=== PATIENT | male | born 1980 | race Caucasian/White ===

== ENCOUNTER 2017-01-14 20:16 | Inpatient (IN) | payer MEDICAID ==
--- NOTE | 2017-01-14 21:37 | EDM.PDOC ---
ED HPI GENERAL MEDICAL PROBLEM - General Chief Complaint: Drug or Alcohol Abuse Stated Complaint: ALCOHOL WITHDRAWAL Time Seen by Provider: 01/14/17 21:37 - History of Present Illness INITIAL COMMENTS - FREE TEXT/NARRATIVE: 36-year-old male presents emergency room for alcohol detox. Patient was sent here by luis e carbajal. The patient has had several attempts in the past that of work variable lengths of time. However the patient's been drinking heavily again he drinks 1-2 12 packs a day. The patient is a problems with alcohol withdrawals in the past patient denies any other past medical problems. Patient denies any recent trauma or illnesses he has not had any recent head injuries. He has not had any recent illnesses no fevers chills or other problems like that. Generalized Pain Score (Numeric/FACES): 10 - Related Data Allergies Allergy/AdvReac Type Severity Reaction Status Date / Time No Known Allergies Allergy Verified 01/14/17 20:32 Home Meds: Home Meds . [No Known Home Meds] 01/14/17 [History] Past Medical History Cardiovascular History: Reports: Hypertension Psychiatric History: Reports: Addiction - Past Surgical History Musculoskeletal Surgical History: Reports: ORIF, Other (See Below) Other Musculoskeletal Surgeries/Procedures:: tendon repair Social & Family History - Tobacco Use Smoking Status *Q: Current Every Day Smoker Years of Tobacco use: 24 Packs/Tins Daily: 3 - Caffeine Use Caffeine Use: Reports: None - Alcohol Use Date of Last Drink: 01/14/17 Time of Last Drink: 19:30 - Recreational Drug Use Recreational Drug Use: No ED ROS GENERAL - Review of Systems Review Of Systems: See Below Constitutional: Reports: No Symptoms HEENT: Reports: No Symptoms Respiratory: Reports: No Symptoms Cardiovascular: Reports: No Symptoms Endocrine: Reports: No Symptoms GI/Abdominal: Reports: No Symptoms, Nausea, Vomiting. Denies: Black Stool, Bloody Stool, Constipation, Diarrhea, Difficulty Swallowing, Hematemesis : Reports: No Symptoms ED EXAM, GENERAL - Physical Exam Exam: See Below Exam Limited By: No Limitations General Appearance: Alert, No Apparent Distress Eye Exam: Bilateral Eye: Normal Inspection, PERRL Ears: Normal External Exam, Normal Canal, Hearing Grossly Normal, Normal TMs Nose: Normal Inspection, Normal Mucosa, No Blood Throat/Mouth: Normal Inspection, Normal Lips, Normal Gums, Normal Oropharynx, Normal Voice, No Airway Compromise Head: Atraumatic, Normocephalic Neck: Normal Inspection, Supple, Non-Tender, Full Range of Motion Respiratory/Chest: No Respiratory Distress, Lungs Clear, Normal Breath Sounds Cardiovascular: Regular Rate, Rhythm, No Edema, No Murmur GI/Abdominal: Normal Bowel Sounds, Soft, Non-Tender Back Exam: Normal Inspection. No: CVA Tenderness (L), CVA Tenderness (R) Extremities: Normal Inspection, Normal Range of Motion, Non-Tender, No Pedal Edema Neurological: Alert, Oriented, Normal Cognition Psychiatric: Normal Affect, Normal Mood Course - Vital Signs Last Recorded V/S: Last Vital Signs Temp 36.4 C 01/14/17 20:29 Pulse 92 01/14/17 20:29 Resp 16 01/14/17 20:29 BP 141/98 H 01/14/17 20:29 Pulse Ox 97 01/14/17 20:29 - Orders/Labs/Meds Orders: Active Orders 24 hr Category Date Time Status Antiembolic Devices [RC] 10,22 Care 01/14/17 22:51 Active CIWAA Assessment [RC] Q1HR Care 01/14/17 22:50 Active Cardiac Monitoring [RC] CONTINUOUS Care 01/14/17 22:50 Active Height and Weight [RC] 04 Care 01/14/17 22:50 Active Intake and Output [RC] 04,16 Care 01/14/17 22:50 Active Notify Provider Consults [RC] ASDIRECTED Care 01/14/17 22:53 Active Notify Provider [RC] PRN Care 01/14/17 22:50 Active Oxygen Therapy [RC] PRN Care 01/14/17 22:50 Active RT Aerosol Therapy [RC] ASDIRECTED Care 01/14/17 22:52 Active Up With Assistance [RC] ASDIRECTED Care 01/14/17 22:50 Active Up ad Caitlyn [RC] ASDIRECTED Care 01/14/17 22:50 Active VTE/DVT Education [RC] PER UNIT ROUTINE Care 01/14/17 22:50 Active Vital Signs [RC] Q4HR Care 01/14/17 22:50 Active Consult to Case Management [CONS] Routine Cons 01/14/17 22:52 Active Consult to Physician [CONS] Routine Cons 01/14/17 22:52 Active Consult to Agricultural Research Technologist [CONS] Routine Cons 01/14/17 22:52 Active Consult to Spiritual Care [CONS] Routine Cons 01/14/17 22:52 Active OT Evaluation and Treatment [CONS] Routine Cons 01/14/17 22:52 Active PT Evaluation and Treatment [CONS] Routine Cons 01/14/17 22:52 Active Regular Diet [DIET] Diet 01/15/17 Breakfast Active Abdomen 2V AP Flat Upright [CR] Stat Exams 01/14/17 22:08 Taken BASIC METABOLIC PANEL,BMP [CHEM] AM Lab 01/15/17 05:11 Ordered BASIC METABOLIC PANEL,BMP [CHEM] AM Lab 01/16/17 05:11 Ordered BASIC METABOLIC PANEL,BMP [CHEM] AM Lab 01/17/17 05:11 Ordered CBC WITH AUTO DIFF [HEME] AM Lab 01/15/17 05:11 Ordered CBC WITH AUTO DIFF [HEME] AM Lab 01/16/17 05:11 Ordered CBC WITH AUTO DIFF [HEME] AM Lab 01/17/17 05:11 Ordered DRUG SCREEN, URINE [URCHEM] Stat Lab 01/14/17 22:52 Uncollected MAGNESIUM [CHEM] AM Lab 01/15/17 05:11 Ordered MAGNESIUM [CHEM] AM Lab 01/16/17 05:11 Ordered MAGNESIUM [CHEM] AM Lab 01/17/17 05:11 Ordered Acetaminophen [Tylenol] Med 01/14/17 22:50 Active 650 mg PO Q4H PRN Acetaminophen/HYDROcodone [Bunker 325-5 MG] Med 01/14/17 22:50 Active 1 tab PO Q4H PRN Albuterol/Ipratropium [DuoNeb 3.0-0.5 MG/3 ML] Med 01/14/17 22:50 Active 3 ml NEB Q4HRRT PRN Bisacodyl [Dulcolax] Med 01/14/17 22:50 Active 5 mg PO DAILY PRN Dextrose 5%-0.9% NaCl [Dextrose 5%-Normal Saline] 1,000 Med 01/14/17 23:00 Active ml IV ASDIRECTED Docusate Sodium [Colace] Med 01/14/17 22:50 Active 100 mg PO BID PRN Docusate Sodium/Sennosides [Senna Plus] Med 01/14/17 22:50 Active 1 tab PO BID PRN Famotidine [Pepcid] Med 01/15/17 09:00 Active 20 mg PO Q12H Folic Acid Med 01/15/17 09:00 Active 1 mg PO DAILY HYDROmorphone [Dilaudid] Med 01/14/17 22:50 Active 0.25 mg IVPUSH Q2H PRN Ibuprofen [Motrin] Med 01/14/17 22:50 Active 600 mg PO Q6H PRN LORazepam [Ativan] Med 01/14/17 22:56 Active 2 mg IVPUSH Q4H PRN LORazepam [Ativan] Med 01/14/17 22:56 Active See Protocol IVPUSH Q4H PRN Magnesium Rep Pharmacy to Dose [Pharmacy to Dose - Med 01/14/17 23:00 Pending Magnesium Replacement] 1 dose .XX ASDIRECTED Metoprolol Tartrate [Lopressor] Med 01/14/17 22:56 Active 5 mg IVPUSH Q4H PRN Multivitamins,Therapeutic [Thera] Med 01/15/17 09:00 Active 1 each PO DAILY Nicotine [Habitrol] Med 01/15/17 09:00 Active 21 mg TRDERM DAILY Ondansetron [Zofran] Med 01/14/17 22:50 Active 4 mg IV Q6H PRN Pantoprazole [ProTONIX IV] Med 01/15/17 22:52 Once 40 mg IV ONETIME ONE Polyethylene Glycol 3350 [MiraLAX] Med 01/14/17 22:50 Active 17 gm PO DAILY PRN Potassium Rep Pharmacy to Dose [Pharmacy to Dose - Med 01/14/17 23:00 Pending Potassium Replacement] 1 dose .XX ASDIRECTED Promethazine [Phenergan] 12.5 mg Med 01/14/17 22:50 Active Sodium Chloride 0.9% [Normal Saline] 50 ml IV Q6H Temazepam [Restoril] Med 01/14/17 22:50 Active 15 mg PO BEDTIME PRN Thiamine [Vitamin B-1] Med 01/15/17 09:00 Active 100 mg PO DAILY cloNIDine [Catapres] Med 01/14/17 22:52 Active 0.1 mg PO Q4H PRN hydrALAZINE [Apresoline] Med 01/14/17 22:56 Active 20 mg IVPUSH Q4H PRN Seizure Precautions [OM.PC] Routine Oth 01/14/17 22:52 Ordered Sequential Compression Device [OM.PC] Per Unit Routine Oth 01/14/17 22:50 Ordered Resuscitation Status Routine Resus Stat 01/14/17 22:50 Ordered Medication Orders Acetaminophen (Tylenol) 650 mg PO Q4H PRN PRN Reason: Pain (Mild 1-3)/fever Hydrocodone Bitart/Acetaminophen (Bunker 325-5 Mg) 1 tab PO Q4H PRN PRN Reason: Pain (moderate 4-6) Albuterol/Ipratropium (Duoneb 3.0-0.5 Mg/3 Ml) 3 ml NEB Q4HRRT PRN PRN Reason: Shortness Of Breath/wheezing Bisacodyl (Dulcolax) 5 mg PO DAILY PRN PRN Reason: Constipation Chlordiazepoxide HCl (Librium) 25 mg PO TID CLYDE Clonidine HCl (Catapres) 0.1 mg PO Q4H PRN PRN Reason: Agitation Diphenhydramine HCl (Benadryl) 50 mg IVPUSH ONETIME ONE Stop: 01/14/17 23:52 Docusate Sodium (Colace) 100 mg PO BID PRN PRN Reason: Constipation Famotidine (Pepcid) 20 mg PO Q12H CLY[facility] Folic Acid (Folic Acid) 1 mg PO DAILY CLYDE Stop: 01/17/17 09:01 Folic Acid (Folic Acid) 1 mg PO ONETIME ONE Stop: 01/14/17 23:53 Hydralazine HCl (Apresoline) 20 mg IVPUSH Q4H PRN PRN Reason: Hypertension Hydromorphone HCl (Dilaudid) 0.25 mg IVPUSH Q2H PRN PRN Reason: Pain (severe 7-10) Dextrose/Sodium Chloride (Dextrose 5%-Normal Saline) 1,000 mls @ 125 mls/hr IV ASDIRECTED CLYDE Promethazine HCl 12.5 mg/ (Sodium Chloride) 50.5 mls @ 100 mls/hr IV Q6H PRN PRN Reason: Nausea/Vomiting Ibuprofen (Motrin) 600 mg PO Q6H PRN PRN Reason: Pain (moderate 4-6) Lorazepam (Ativan) 2 mg IVPUSH Q4H PRN PRN Reason: Seizures Lorazepam (Ativan) 0 mg IVPUSH Q4H PRN; Protocol PRN Reason: Withdrawal Symptoms Magnesium Sulfate (Pharmacy To Dose - Magnesium Replacement) 1 dose .XX ASDIRECTED [facility] Metoprolol Tartrate (Lopressor) 5 mg IVPUSH Q4H PRN PRN Reason: Tachycardia Miscellaneous Information (Remove Patch) 1 ea TRDERM DAILY [facility] Multivitamins (Thera) 1 each PO DAILY [facility] Nicotine (Habitrol) 21 mg TRDERM DAILY [facility] Ondansetron HCl (Zofran) 4 mg IV Q6H PRN PRN Reason: Nausea/Vomiting Pantoprazole Sodium (Protonix Iv) 40 mg IV ONETIME ONE Stop: 01/15/17 22:53 Polyethylene Glycol (Miralax) 17 gm PO DAILY PRN PRN Reason: Constipation Potassium Chloride (Pharmacy To Dose - Potassium Replacement) 1 dose .XX ASDIRECTED [facility] Potassium Chloride (Klor-Con M20) 20 meq PO Q3H [facility] Stop: 01/15/17 02:01 Quetiapine Fumarate (Seroquel) 50 mg PO ONETIME ONE Stop: 01/15/17 23:06 Quetiapine Fumarate (Seroquel) 25 mg PO BID [facility] Quetiapine Fumarate (Seroquel) 50 mg PO ONETIME ONE Stop: 01/14/17 23:51 Senna/Docusate Sodium (Senna Plus) 1 tab PO BID PRN PRN Reason: Constipation Temazepam (Restoril) 15 mg PO BEDTIME PRN PRN Reason: Sleep Thiamine HCl (Vitamin B-1) 100 mg PO DAILY [facility] Labs: Laboratory Tests 01/14/17 01/14/17 Range/Units 22:06 22:06 WBC 4.00 L (4.23-9.07) K/mm3 RBC 5.10 (4.63-6.08) M/mm3 Hgb 16.7 (13.7-17.5) gm/L Hct 45.6 (40.1-51.0) % MCV 89.4 (79.0-92.2) fl MCH 32.7 H (25.7-32.2) pg MCHC 36.6 H (32.2-35.5) g/dl RDW Std Deviation 43.2 (35.1-43.9) fL Plt Count 85 L (163-337) K/mm3 MPV 9.7 (9.4-12.3) fl Neutrophils % (Manual) 50 (40-60) % Band Neutrophils % 4 (0-10) % Lymphocytes % (Manual) 40 (20-40) % Atypical Lymphs % 0 % Monocytes % (Manual) 5 (2-10) % Eosinophils % (Manual) 1 (0.8-7.0) % Basophils % (Manual) 0 L (0.2-1.2) Platelet Estimate Decreased Anisocytosis 1+ slight Target Cells 1+ slight Tear Drop Cells 1+ slight RBC Morph Comment Not Reportable Sodium 135 L (136-145) mEq/L Potassium 3.2 L (3.5-5.1) mEq/L Chloride 96 L (98-107) mEq/L Carbon Dioxide 28 (21-32) mEq/L Anion Gap 14.2 (5-15) BUN 4 L (7-18) mg/dL Creatinine 0.9 (0.7-1.3) mg/dL Est Cr Clr Drug Dosing 106.09 mL/min Estimated GFR (MDRD) > 60 (>60) mL/min BUN/Creatinine Ratio 4.4 L (14-18) Glucose 113 H (74-106) mg/dL Calcium 8.7 (8.5-10.1) mg/dL Total Bilirubin 0.5 (0.2-1.0) mg/dL Direct Bilirubin 0.20 (0.0-0.2) mg/dl Indirect Bilirubin 0.30 AST 200 H (15-37) U/L ALT 151 H (16-63) U/L Alkaline Phosphatase 102 (46-116) U/L Total Protein 8.6 H (6.4-8.2) g/dl Albumin 4.2 (3.4-5.0) g/dl Globulin 4.4 gm/dL Albumin/Globulin Ratio 1.0 (1-2) Lipase 357 (73-393) U/L Ethyl Alcohol 0.42 (0.00) gm% Meds: Medications Generic Name Dose Route Start Last Admin Trade Name Freq PRN Reason Stop Dose Admin Acetaminophen 650 mg 01/14/17 22:50 Tylenol PO Q4H PRN Pain (Mild 1-3)/fever Hydrocodone Bitart/Acetaminophen 1 tab 01/14/17 22:50 Bunker 325-5 Mg PO Q4H PRN Pain (moderate 4-6) Albuterol/Ipratropium 3 ml 01/14/17 22:50 Duoneb 3.0-0.5 Mg/3 Ml NEB Q4HRRT PRN Shortness Of Breath/wheezing Bisacodyl 5 mg 01/14/17 22:50 Dulcolax PO DAILY PRN Constipation Chlordiazepoxide HCl 25 mg 01/15/17 09:00 Librium PO TID [facility] Clonidine HCl 0.1 mg 01/14/17 22:52 Catapres PO Q4H PRN Agitation Diphenhydramine HCl 50 mg 01/14/17 23:51 Benadryl IVPUSH 01/14/17 23:52 ONETIME ONE Docusate Sodium 100 mg 01/14/17 22:50 Colace PO BID PRN Constipation Famotidine 20 mg 01/15/17 09:00 Pepcid PO Q12H [facility] Folic Acid 1 mg 01/15/17 09:00 Folic Acid PO 01/17/17 09:01 DAILY [facility] Folic Acid 1 mg 01/14/17 23:52 Folic Acid PO 01/14/17 23:53 ONETIME ONE Hydralazine HCl 20 mg 01/14/17 22:56 Apresoline IVPUSH Q4H PRN Hypertension Hydromorphone HCl 0.25 mg 01/14/17 22:50 Dilaudid IVPUSH Q2H PRN Pain (severe 7-10) Dextrose/Sodium Chloride 1,000 mls @ 125 mls/hr 01/14/17 23:00 Dextrose 5%-Normal Saline IV ASDIRECTED [facility] Promethazine HCl 12.5 mg/ 50.5 mls @ 100 mls/hr 01/14/17 22:50 Sodium Chloride IV Q6H PRN Nausea/Vomiting Ibuprofen 600 mg 01/14/17 22:50 Motrin PO Q6H PRN Pain (moderate 4-6) Lorazepam 2 mg 01/14/17 22:56 Ativan IVPUSH Q4H PRN Seizures Lorazepam 0 mg 01/14/17 22:56 Ativan IVPUSH Q4H PRN Withdrawal Symptoms Protocol Magnesium Sulfate 1 dose 01/14/17 23:00 Pharmacy To Dose - Magnesium Replacement .XX ASDIRECTED [facility] Metoprolol Tartrate 5 mg 01/14/17 22:56 Lopressor IVPUSH Q4H PRN Tachycardia Miscellaneous Information 1 ea 01/15/17 09:00 Remove Patch TRDERM DAILY [facility] Multivitamins 1 each 01/15/17 09:00 Thera PO DAILY [facility] Nicotine 21 mg 01/15/17 09:00 Habitrol TRDERM DAILY [facility] Ondansetron HCl 4 mg 01/14/17 22:50 Zofran IV Q6H PRN Nausea/Vomiting Pantoprazole Sodium 40 mg 01/15/17 22:52 Protonix Iv IV 01/15/17 22:53 ONETIME ONE Polyethylene Glycol 17 gm 01/14/17 22:50 Miralax PO DAILY PRN Constipation Potassium Chloride 1 dose 01/14/17 23:00 Pharmacy To Dose - Potassium Replacement .XX ASDIRECTED [facility] Potassium Chloride 20 meq 01/14/17 23:00 Klor-Con M20 PO 01/15/17 02:01 Q3H [facility]YDE Quetiapine Fumarate 50 mg 01/15/17 23:05 Seroquel PO 01/15/17 23:06 ONETIME ONE Quetiapine Fumarate 25 mg 01/15/17 09:00 Seroquel PO BID CLYDE Quetiapine Fumarate 50 mg 01/14/17 23:50 Seroquel PO 01/14/17 23:51 ONETIME ONE Senna/Docusate Sodium 1 tab 01/14/17 22:50 Senna Plus PO BID PRN Constipation Temazepam 15 mg 01/14/17 22:50 Restoril PO BEDTIME PRN Sleep Thiamine HCl 100 mg 01/15/17 09:00 Vitamin B-1 PO DAILY [facility] Discontinued Medications Generic Name Dose Route Start Last Admin Trade Name Freq PRN Reason Stop Dose Admin Chlordiazepoxide HCl 25 mg 01/14/17 22:02 01/14/17 22:10 Librium PO 01/14/17 22:03 25 mg ONETIME ONE Administration Chlordiazepoxide HCl 75 mg 01/14/17 23:06 Librium PO 01/14/17 23:07 ONETIME ONE Thiamine HCl 200 mg/ Sodium 52 mls @ 100 mls/hr 01/14/17 22:52 Chloride IV 01/14/17 23:22 ONETIME ONE - Re-Assessments/Exams Free Text/Narrative Re-Assessment/Exam: 01/14/17 23:58 She'll be placed in for alcohol detox. Case discussed with Dr. Celestin our hospitalist Departure - Departure Time of Disposition: 23:59 Disposition: Admitted As Inpatient 66 Clinical Impression: Alcohol withdrawal syndrome - Discharge Information - My Orders Last 24 Hours: My Active Orders 01/14/17 22:08 Abdomen 2V AP Flat Upright [CR] Stat - Assessment/Plan Last 24 Hours: My Active Orders 01/14/17 22:08 Abdomen 2V AP Flat Upright [CR] Stat
[2017-01-14] MEDS ORDERED: chlordiazePOXIDE 25 MG Cap PO ONE ×2 (22:02→23:06)
[2017-01-14] MEDS ORDERED: Bisacodyl 5 MG Tab PO PRN (22:50)
[2017-01-14] MEDS ORDERED: Ibuprofen 600 MG Tab PO PRN (22:50)
[2017-01-14] MEDS ORDERED: Ondansetron 4 MG/2 ML SDV IV PRN (22:50)
[2017-01-14] MEDS ORDERED: Polyethylene Glycol 3350 Powder 17 GM Packet PO PRN (22:50)
[2017-01-14] MEDS ORDERED: HYDROmorphone 0.5 MG/0.5 ML Syringe IVPUSH PRN (22:50)
[2017-01-14] MEDS ORDERED: Promethazine 12.5 MG in Sodium Chloride 0.9% 50 ML IV PRN (22:50)
[2017-01-14] MEDS ORDERED: Docusate Sodium 100 MG Cap PO PRN (22:50)
[2017-01-14] MEDS ORDERED: Acetaminophen/HYDROcodone 325-5 MG Tab PO PRN (22:50)
[2017-01-14] MEDS ORDERED: Acetaminophen 325 MG Tab PO PRN (22:50)
[2017-01-14] MEDS ORDERED: Albuterol/Ipratropium 3.0-0.5 MG/3 ML Neb Soln NEB PRN (22:50)
[2017-01-14] MEDS ORDERED: hydrALAZINE 20 MG/ML SDV IVPUSH PRN (22:56)
[2017-01-14] MEDS ORDERED: Metoprolol Tartrate 5 MG/5 ML SDV IVPUSH PRN (22:56)
--- NOTE | 2017-01-14 23:03 | PCM.HP ---
H&P History of Present Illness - General Date of Service: 01/14/17 Admit Problem/Dx: Alcohol Withdrawal Source of Information: Patient, Family, Provider, RN Notes Reviewed History Limitations: Reports: Altered Mental Status, Intoxication - History of Present Illness Initial Comments - Free Text/Narative: This is 36 year old white male who looks older than his stated age who comes to the emergency department for alcohol detoxification. He carries a history of chronic alcohol abuse. He has been drinking alcohol since the age of 12. He drinks over 24 packs a day and sometimes mixed it with a pint of whiskey on and off. His last drink was 3 hours ago. Patient has reached a point where and he can no longer function without alcohol in his system. He has been to rehabilitation over a year ago in [facility]. Unfortunately, last May he slipped up (was seen in [place]) but got back to rehabilitation. 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 He denies any illicit drug use. However he smokes 2-3 packs a day. His initial labs in emergency departments are still pending. Patient is being admitted for alcohol detoxification. He plans to go to [facility] for outpatient treatment. Generalized Pain Score (Numeric/FACES): 10 - Related Data Allergies/Adverse Reactions: Allergies Allergy/AdvReac Type Severity Reaction Status Date / Time No Known Allergies Allergy Verified 01/14/17 20:32 Home Medications: Home Meds . [No Known Home Meds] 01/14/17 [History] Past Medical History Cardiovascular History: Reports: Hypertension Psychiatric History: Reports: Addiction - Past Surgical History Musculoskeletal Surgical History: Reports: ORIF, Other (See Below) Other Musculoskeletal Surgeries/Procedures:: tendon repair Social & Family History - Tobacco Use Smoking Status *Q: Current Every Day Smoker Years of Tobacco use: 24 Packs/Tins Daily: 3 - Caffeine Use Caffeine Use: Reports: None - Alcohol Use Date of Last Drink: 01/14/17 Time of Last Drink: 19:30 - Recreational Drug Use Recreational Drug Use: No H&P Review of Systems - Review of Systems: Review Of Systems: See Below General: Reports: Malaise, Decreased Appetite HEENT: Reports: No Symptoms Pulmonary: Denies: Shortness of Breath Cardiovascular: Denies: Chest Pain Gastrointestinal: Denies: Abdominal Pain, Nausea, Vomiting Genitourinary: Reports: No Symptoms Musculoskeletal: Reports: No Symptoms Skin: Reports: No Symptoms Psychiatric: Denies: Depression, Anxiety, Agitation, Cravings, Hallucinations, Suicidal Ideation Neurological: Reports: Confusion, Tremors, Difficulty Walking, Gait Disturbance. Denies: Seizure, Weakness Hematologic/Lymphatic: Reports: No Symptoms Immunologic: Reports: No Symptoms Exam - Exam Exam: See Below - Vital Signs Vital Signs: Last Vital Signs Temp 36.4 C 01/14/17 20:29 Pulse 92 01/14/17 20:29 Resp 16 01/14/17 20:29 BP 141/98 H 01/14/17 20:29 Pulse Ox 97 01/14/17 20:29 Weight: 77.111 kg - Exam General: Lethargic, Other (breath smells alcohol) HEENT: Conjunctiva Clear, EACs Clear, Mucosa Moist & [place], Nares Patent, Posterior Pharynx Clear, Pupils Equal, Pupils Reactive, Other (lateral nystagmus ) Neck: Supple, Trachea Midline Lungs: Clear to Auscultation, Normal Respiratory Effort Cardiovascular: Regular Rate, Regular Rhythm Abdomen: Normal Bowel Sounds, Soft. No: Organomegaly, Tenderness (Male) Exam: Deferred Rectal (Males) Exam: Deferred Back Exam: Normal Inspection, Decreased Range of Motion Extremities: Normal Inspection, Normal Pulses Peripheral Pulses: 2+: Posterior Tibial (L), Posterior Tibial (R), Dorsalis Pedis (L), Dorsalis Pedis (R) Skin: Warm, Dry, Intact Neuro Extensive - Mental Status: Normal Mood/Affect, Slow Response to Commands. No: Oriented x3, Normal Cognition, Memory Intact Neuro Extensive - Motor, Sensory, Reflexes: CN II-XII Intact (limited due to intoxication), Abnormal Gait Psychiatric: Withdrawal Symptoms - Patient Data Lab Results Last 24 hrs: Laboratory Results - last 24 hr 01/14/17 01/14/17 Range/Units 22:06 22:06 WBC 4.00 L (4.23-9.07) K/mm3 RBC 5.10 (4.63-6.08) M/mm3 Hgb 16.7 (13.7-17.5) gm/L Hct 45.6 (40.1-51.0) % MCV 89.4 (79.0-92.2) fl MCH 32.7 H (25.7-32.2) pg MCHC 36.6 H (32.2-35.5) g/dl RDW Std Deviation 43.2 (35.1-43.9) fL Plt Count 85 L (163-337) K/mm3 MPV 9.7 (9.4-12.3) fl Sodium 135 L (136-145) mEq/L Potassium 3.2 L (3.5-5.1) mEq/L Chloride 96 L (98-107) mEq/L Carbon Dioxide 28 (21-32) mEq/L Anion Gap 14.2 (5-15) BUN 4 L (7-18) mg/dL Creatinine 0.9 (0.7-1.3) mg/dL Est Cr Clr Drug Dosing 106.09 mL/min Estimated GFR (MDRD) > 60 (>60) mL/min BUN/Creatinine Ratio 4.4 L (14-18) Glucose 113 H (74-106) mg/dL Calcium 8.7 (8.5-10.1) mg/dL Total Bilirubin 0.5 (0.2-1.0) mg/dL Direct Bilirubin 0.20 (0.0-0.2) mg/dl Indirect Bilirubin 0.30 AST 200 H (15-37) U/L ALT 151 H (16-63) U/L Alkaline Phosphatase 102 (46-116) U/L Total Protein 8.6 H (6.4-8.2) g/dl Albumin 4.2 (3.4-5.0) g/dl Globulin 4.4 gm/dL Albumin/Globulin Ratio 1.0 (1-2) Lipase 357 (73-393) U/L Ethyl Alcohol 0.42 (0.00) gm% Result Diagrams: 01/15/17 07:02 01/14/17 22:06 *Q Meaningful Use (ADM) - VTE *Q VTE Criteria *Q: - Stroke *Q Stroke Criteria *Q: - AMI *Q AMI Criteria *Q: Problem List Initiated/Reviewed/Updated: Yes Orders Last 24hrs: Active Orders 24 hr Category Date Time Status Antiembolic Devices [RC] PER UNIT ROUTINE Care 01/14/17 22:51 Ordered CIWAA Assessment [RC] Q15M Care 01/14/17 22:50 Ordered CIWAA Assessment [RC] Q1H Care 01/14/17 22:50 Ordered CIWAA Assessment [RC] Q30M Care 01/14/17 22:50 Ordered CIWAA Assessment [RC] Q4H Care 01/14/17 22:50 Ordered Cardiac Monitoring [RC] CONTINUOUS Care 01/14/17 22:50 Ordered Height and Weight [RC] DAILY Care 01/14/17 22:50 Ordered Intake and Output [RC] QSHIFT Care 01/14/17 22:50 Ordered Notify Provider Consults [RC] ASDIRECTED Care 01/14/17 22:53 Ordered Notify Provider [RC] PRN Care 01/14/17 22:50 Ordered Oxygen Therapy [RC] PRN Care 01/14/17 22:50 Ordered RT Aerosol Therapy [RC] ASDIRECTED Care 01/14/17 22:52 Ordered Up With Assistance [RC] ASDIRECTED Care 01/14/17 22:50 Ordered Up ad Caitlyn [RC] ASDIRECTED Care 01/14/17 22:50 Ordered VTE/DVT Education [RC] PER UNIT ROUTINE Care 01/14/17 22:50 Ordered Vital Signs [RC] Q4H Care 01/14/17 22:50 Ordered Consult to Case Management [CONS] Routine Cons 01/14/17 22:52 Ordered Consult to Physician [CONS] Routine Cons 01/14/17 22:52 Ordered Consult to Loan Processing Supervisor [CONS] Routine Cons 01/14/17 22:52 Ordered Consult to Spiritual Care [CONS] Routine Cons 01/14/17 22:52 Ordered OT Evaluation and Treatment [CONS] Routine Cons 01/14/17 22:52 Ordered PT Evaluation and Treatment [CONS] Routine Cons 01/14/17 22:52 Ordered Regular Diet [DIET] Diet 01/15/17 Breakfast Ordered Abdomen 2V AP Flat Upright [CR] Stat Exams 01/14/17 22:08 Ordered BASIC METABOLIC PANEL,BMP [CHEM] AM Lab 01/15/17 05:11 Ordered BASIC METABOLIC PANEL,BMP [CHEM] AM Lab 01/16/17 05:11 Ordered BASIC METABOLIC PANEL,BMP [CHEM] AM Lab 01/17/17 05:11 Ordered CBC WITH AUTO DIFF [HEME] AM Lab 01/15/17 05:11 Ordered CBC WITH AUTO DIFF [HEME] AM Lab 01/16/17 05:11 Ordered CBC WITH AUTO DIFF [HEME] AM Lab 01/17/17 05:11 Ordered CBC WITH MANUAL DIFF [HEME] Stat Lab 01/14/17 22:06 Results DRUG SCREEN, URINE [URCHEM] Stat Lab 01/14/17 22:52 Uncollected MAGNESIUM [CHEM] AM Lab 01/15/17 05:11 Ordered MAGNESIUM [CHEM] AM Lab 01/16/17 05:11 Ordered MAGNESIUM [CHEM] AM Lab 01/17/17 05:11 Ordered Acetaminophen [Tylenol] Med 01/14/17 22:50 Ordered 650 mg PO Q4H PRN Acetaminophen/HYDROcodone [[place] 325-5 MG] Med 01/14/17 22:50 Ordered 1 tab PO Q4H PRN Albuterol/Ipratropium [DuoNeb 3.0-0.5 MG/3 ML] Med 01/14/17 22:50 Ordered 3 ml NEB Q4H PRN Bisacodyl [Dulcolax] Med 01/14/17 22:50 Ordered 5 mg PO DAILY PRN Dextrose 5%-Normal Saline @ 125 MLS/HR(1000ml) Med 01/14/17 23:00 Ordered Dextrose 5%-0.9% NaCl [Dextrose 5%-Normal Saline] 1,000 ml IV ASDIRECTED Docusate Sodium [Colace] Med 01/14/17 22:50 Ordered 100 mg PO BID PRN Docusate Sodium/Sennosides [Senna Plus] Med 01/14/17 22:50 Ordered 1 tab PO BID PRN Famotidine [Pepcid] Med 01/15/17 09:00 Ordered 20 mg PO Q12H Folic Acid Med 01/15/17 09:00 Ordered 1 mg PO DAILY HYDROmorphone [Dilaudid] Med 01/14/17 22:50 Ordered 0.25 mg IVPUSH Q2H PRN Ibuprofen [Motrin] Med 01/14/17 22:50 Ordered 600 mg PO Q6H PRN LORazepam [Ativan] Med 01/14/17 22:56 Ordered 2 mg IVPUSH Q4H PRN LORazepam [Ativan] Med 01/14/17 22:56 Ordered See Protocol IVPUSH Q4H PRN Magnesium Rep Pharmacy to Dose [Pharmacy to Dose - Med 01/14/17 23:00 Ordered Magnesium Replacement] 1 dose .XX ASDIRECTED Metoprolol Tartrate [Lopressor] Med 01/14/17 22:56 Ordered 5 mg IVPUSH Q4H PRN Multivitamins,Therapeutic [Thera] Med 01/15/17 09:00 Ordered 1 each PO DAILY Seizure Precautions [OM.PC] Routine Oth 01/14/17 22:52 Ordered Sequential Compression Device [OM.PC] Per Unit Routine Oth 01/14/17 22:50 Ordered Resuscitation Status Routine Resus Stat 01/14/17 22:50 Ordered Assessment/Plan Comment:: Assessment: ETOH Detoxification with Withdrawal Symptoms - CIWA protocol: CIWA score considerably elevated - Ativan/Librium/Clonidine/Seroquel - Hydralzine and IVP BB for HR/BP control - Ativan for Abortive Seizure and Withdrawal Symptoms - Restoril for Insomnia Tobacco Dependence - Smokes 2-3 packs a day - Nicotine patch - Counseled on Smoking Cessation Chronic ETOH 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
[2017-01-14] MEDS ORDERED: QUEtiapine 25 MG Tab PO ONE (23:50)
[2017-01-14] MEDS ORDERED: diphenhydrAMINE 50 MG/ML SDV IVPUSH ONE (23:51)
[2017-01-14] MEDS ORDERED: Folic Acid 1 MG Tab PO ONE (23:52)
[2017-01-15] MEDS: Potassium Chloride 20 MEQ Tab.ER PO SCH ×6 (00:32→17:53)
[2017-01-15] MEDS: Dextrose 5%-0.9% NaCl 1,000 ML IV SCH ×3 (00:38→18:16)
[2017-01-15] MEDS: LORazepam 2 MG/ML MDV IVPUSH PRN ×9 (00:40→22:15)
--- NOTE | 2017-01-15 07:01 | CR ---
Abdomen: Supine and upright views of the abdomen were obtained. Comparison: No previous study. Bowel gas pattern appears normal. No abnormal calcifications or soft tissue abnormality is seen. No free air is identified. Minimal scoliosis noted within the spine most likely positional. Impression: 1. No abnormality is appreciated on two-view abdominal x-ray. Diagnostic code #1
[2017-01-15] MEDS: Folic Acid 1 MG Tab PO SCH ×2 (10:29→10:45)
[2017-01-15] MEDS: chlordiazePOXIDE 25 MG Cap PO SCH ×4 (10:30→20:05)
[2017-01-15] MEDS: QUEtiapine 25 MG Tab PO SCH ×3 (10:30→20:05)
[2017-01-15] MEDS: Thiamine 100 MG Tab PO SCH ×2 (10:30→10:45)
[2017-01-15] MEDS: Multivitamins,Therapeutic Tab PO SCH ×2 (10:30→10:48)
[2017-01-15] MEDS: Famotidine 20 MG Tab PO SCH ×3 (10:30→20:05)
--- NOTE | 2017-01-15 11:41 | PCM.PN ---
- General Info Date of Service: 01/15/17 Functional Status: Reports: pain controlled, tolerating diet - Review of Systems General: Reports: No Symptoms HEENT: Reports: no symptoms Pulmonary: Reports: no symptoms Cardiovascular: Reports: No Symptoms Gastrointestinal: Reports: No symptoms Genitourinary: Reports: no symptoms Musculoskeletal: Reports: no symptoms Skin: Reports: no symptoms Neurological: Reports: No Symptoms Psychiatric: Reports: no symptoms - Patient Data Vitals - most recent: Last Vital Signs Temp 36.7 C 01/15/17 08:00 Pulse 121 H 01/15/17 03:19 Resp 13 01/15/17 08:00 BP 93/61 01/15/17 08:00 Pulse Ox 96 01/15/17 08:00 Weight - most recent: 77.111 kg I&O - last 24 hours: Intake & Output 01/14/17 01/15/17 01/15/17 22:59 06:59 14:59 Intake Total 391 Output Total 600 Balance -209 Lab Results last 24 hrs: Laboratory Results - last 24 hr 01/15/17 01/15/17 Range/Units 07:02 07:02 WBC 3.10 L (4.23-9.07) K/mm3 RBC 4.85 (4.63-6.08) M/mm3 Hgb 15.6 (13.7-17.5) gm/L Hct 44.1 (40.1-51.0) % MCV 90.9 (79.0-92.2) fl MCH 32.2 (25.7-32.2) pg MCHC 35.4 (32.2-35.5) g/dl RDW Std Deviation 44.8 H (35.1-43.9) fL Plt Count 73 L (163-337) K/mm3 MPV 9.7 (9.4-12.3) fl Neut % (Auto) 36.1 (34.0-67.9) % Lymph % (Auto) 46.5 (21.8-53.1) % [place] % (Auto) 11.3 (5.3-12.2) % Eos % (Auto) 5.5 (0.8-7.0) Baso % (Auto) 0.6 (0.1-1.2) % Neut # (Auto) 1.12 L (1.78-5.38) K/mm3 Lymph # (Auto) 1.44 (1.32-3.57) K/mm3 [place] # (Auto) 0.35 (0.30-0.82) K/mm3 Eos # (Auto) 0.17 (0.04-0.54) K/mm3 Baso # (Auto) 0.02 (0.01-0.08) K/mm3 Manual Slide Review Abnormal smear Sodium 140 (136-145) mEq/L Potassium 3.1 L (3.5-5.1) mEq/L Chloride 103 (98-107) mEq/L Carbon Dioxide 28 (21-32) mEq/L Anion Gap 12.1 (5-15) BUN 4 L (7-18) mg/dL Creatinine 0.8 (0.7-1.3) mg/dL Est Cr Clr Drug Dosing 119.35 mL/min Estimated GFR (MDRD) > 60 (>60) mL/min BUN/Creatinine Ratio 5.0 L (14-18) Glucose 122 H (74-106) mg/dL Calcium 8.2 L (8.5-10.1) mg/dL Magnesium 2.1 (1.8-2.4) mg/dl Med Orders - Current: Current Medications Acetaminophen (Tylenol) 650 mg PO Q4H PRN PRN Reason: Pain (Mild 1-3)/fever Hydrocodone Bitart/Acetaminophen ([place] 325-5 Mg) 1 tab PO Q4H PRN PRN Reason: Pain (moderate 4-6) Albuterol/Ipratropium (Duoneb 3.0-0.5 Mg/3 Ml) 3 ml NEB Q4HRRT PRN PRN Reason: Shortness Of Breath/wheezing Bisacodyl (Dulcolax) 5 mg PO DAILY PRN PRN Reason: Constipation Chlordiazepoxide HCl (Librium) 25 mg PO TID [facility] Last Admin: 01/15/17 10:45 Dose: 25 mg Clonidine HCl (Catapres) 0.1 mg PO Q4H PRN PRN Reason: Agitation Docusate Sodium (Colace) 100 mg PO BID PRN PRN Reason: Constipation Famotidine (Pepcid) 20 mg PO Q12H [facility] Last Admin: 01/15/17 10:46 Dose: 20 mg Folic Acid (Folic Acid) 1 mg PO DAILY [facility] Stop: 01/17/17 09:01 Last Admin: 01/15/17 10:45 Dose: 1 mg Hydralazine HCl (Apresoline) 20 mg IVPUSH Q4H PRN PRN Reason: Hypertension Last Admin: 01/15/17 02:32 Dose: 20 mg Hydromorphone HCl (Dilaudid) 0.25 mg IVPUSH Q2H PRN PRN Reason: Pain (severe 7-10) Dextrose/Sodium Chloride (Dextrose 5%-Normal Saline) 1,000 mls @ 125 mls/hr IV ASDIRECTED [facility] Last Admin: 01/15/17 10:14 Dose: 125 mls/hr Promethazine HCl 12.5 mg/ (Sodium Chloride) 50.5 mls @ 100 mls/hr IV Q6H PRN PRN Reason: Nausea/Vomiting Ibuprofen (Motrin) 600 mg PO Q6H PRN PRN Reason: Pain (moderate 4-6) Lorazepam (Ativan) 2 mg IVPUSH Q4H PRN PRN Reason: Seizures Last Admin: 01/15/17 00:40 Dose: 2 mg Lorazepam (Ativan) 0 mg IVPUSH Q4H PRN; Protocol PRN Reason: Withdrawal Symptoms Last Admin: 01/15/17 03:41 Dose: 2 mg Metoprolol Tartrate (Lopressor) 5 mg IVPUSH Q4H PRN PRN Reason: Tachycardia Last Admin: 01/15/17 03:19 Dose: 5 mg Miscellaneous Information (Remove Patch) 1 ea TRDERM DAILY [facility] Last Admin: 01/15/17 10:30 Dose: Not Given Multivitamins (Thera) 1 each PO DAILY [facility] Last Admin: 01/15/17 10:48 Dose: 1 each Nicotine (Habitrol) 21 mg TRDERM DAILY [facility] Ondansetron HCl (Zofran) 4 mg IV Q6H PRN PRN Reason: Nausea/Vomiting Pantoprazole Sodium (Protonix Iv) 40 mg IV ONETIME ONE Stop: 01/15/17 22:53 Polyethylene Glycol (Miralax) 17 gm PO DAILY PRN PRN Reason: Constipation Potassium Chloride (Klor-Con M20) 40 meq PO Q4H [facility] Stop: 01/15/17 17:01 Last Admin: 01/15/17 10:29 Dose: Not Given Quetiapine Fumarate (Seroquel) 25 mg PO BID [facility] Last Admin: 01/15/17 10:45 Dose: 25 mg Senna/Docusate Sodium (Senna Plus) 1 tab PO BID PRN PRN Reason: Constipation Temazepam (Restoril) 15 mg PO BEDTIME PRN PRN Reason: Sleep Thiamine HCl (Vitamin B-1) 100 mg PO DAILY [facility] Last Admin: 01/15/17 10:45 Dose: 100 mg Discontinued Medications Chlordiazepoxide HCl (Librium) 25 mg PO ONETIME ONE Stop: 01/14/17 22:03 Last Admin: 01/14/17 22:10 Dose: 25 mg Chlordiazepoxide HCl (Librium) 75 mg PO ONETIME ONE Stop: 01/14/17 23:07 Last Admin: 01/15/17 00:33 Dose: 75 mg Diphenhydramine HCl (Benadryl) 50 mg IVPUSH ONETIME ONE Stop: 01/14/17 23:52 Last Admin: 01/15/17 00:33 Dose: 50 mg Folic Acid (Folic Acid) 1 mg PO ONETIME ONE Stop: 01/14/17 23:53 Last Admin: 01/15/17 00:33 Dose: 1 mg Thiamine HCl 200 mg/ Sodium (Chloride) 52 mls @ 100 mls/hr IV ONETIME ONE Stop: 01/14/17 23:22 Last Admin: 01/15/17 00:39 Dose: 100 mls/hr Magnesium Sulfate (Pharmacy To Dose - Magnesium Replacement) 1 dose .XX ASDIRECTED [facility] Potassium Chloride (Pharmacy To Dose - Potassium Replacement) 1 dose .XX ASDIRECTED [facility] Potassium Chloride (Klor-Con M20) 20 meq PO Q3H [facility] Stop: 01/15/17 02:01 Last Admin: 01/15/17 05:15 Dose: Not Given Quetiapine Fumarate (Seroquel) 50 mg PO ONETIME ONE Stop: 01/15/17 23:06 Quetiapine Fumarate (Seroquel) 50 mg PO ONETIME ONE Stop: 01/14/17 23:51 Last Admin: 01/15/17 00:33 Dose: 50 mg - Exam Quality Assessment: supplemental oxygen, DVT prophylaxis General: alert, oriented, no acute distress HEENT: Pupils equal, Pupils reactive, EOMI, Mucous membr. moist/pink Neck: supple, trachea midline Lungs: Clear to auscultation Cardiovascular: Regular Rate, Regular Rhythm Abdomen: bowel sounds present, soft, no tenderness, no distension (Male) Exam: Deferred Back Exam: Normal Inspection Extremities: no edema, normal pulses Skin: warm Neurological: no new focal deficit Psy/Mental Status: alert, anxious - Problem List Review Problem List Initiated/Reviewed/Updated: Yes - Plan Plan:: Assessment: ETOH Detoxification with Withdrawal Symptoms - CIWA protocol: CIWA score considerably elevated - Ativan/Librium/Clonidine/Seroquel - Hydralzine and IVP BB for HR/BP control - Ativan for Abortive Seizure and Withdrawal Symptoms - Restoril for Insomnia Tobacco Dependence - Smokes 2-3 packs a day - Nicotine patch - Counseled on Smoking Cessation 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
[2017-01-15] MEDS: Nicotine 21 MG/24 Hr Patch TRDERM SCH (11:44)
[2017-01-15] MEDS: Pantoprazole 40 MG Vial IV ONE (22:15)
[2017-01-15] MEDS ORDERED: QUEtiapine 25 MG Tab PO ONE (23:05)
[2017-01-16] MEDS: Temazepam 15 MG Cap PO PRN ×2 (00:08→23:39)
[2017-01-16] MEDS: LORazepam 2 MG/ML MDV IVPUSH PRN ×5 (00:08→23:38)
[2017-01-16] MEDS: Pantoprazole 40 MG Vial IV ONE (07:22)
[2017-01-16] MEDS: Multivitamins,Therapeutic Tab PO SCH (08:01)
[2017-01-16] MEDS: chlordiazePOXIDE 25 MG Cap PO SCH ×4 (08:01→20:55)
[2017-01-16] MEDS: Famotidine 20 MG Tab PO SCH ×3 (08:01→20:55)
[2017-01-16] MEDS: QUEtiapine 25 MG Tab PO SCH ×3 (08:01→20:55)
[2017-01-16] MEDS: Thiamine 100 MG Tab PO SCH (08:01)
[2017-01-16] MEDS: Nicotine 21 MG/24 Hr Patch TRDERM SCH (08:01)
[2017-01-16] MEDS: Folic Acid 1 MG Tab PO SCH (08:01)
[2017-01-16] MEDS ORDERED: Magnesium Sulfate/Water 2 GM in Premix Bag 1 BAG IV ONE (12:10)
--- NOTE | 2017-01-16 12:11 | PCM.PN ---
- General Info Date of Service: 01/16/17 Functional Status: Reports: tolerating diet, ambulating, urinating - Review of Systems General: Reports: No Symptoms HEENT: Reports: no symptoms Pulmonary: Reports: no symptoms Cardiovascular: Reports: No Symptoms Gastrointestinal: Reports: No symptoms Genitourinary: Reports: no symptoms Musculoskeletal: Reports: no symptoms Skin: Reports: no symptoms Neurological: Reports: No Symptoms Psychiatric: Reports: no symptoms - Patient Data Vitals - most recent: Last Vital Signs Temp 36.7 C 01/16/17 11:55 Pulse 99 01/15/17 20:00 Resp 16 01/16/17 11:55 BP 126/98 H 01/16/17 11:55 Pulse Ox 99 01/16/17 11:55 Weight - most recent: 71.54 kg I&O - last 24 hours: Intake & Output 01/15/17 01/16/17 01/16/17 22:59 06:59 14:59 Intake Total 2170 1725 Balance 2170 1725 Lab Results last 24 hrs: Laboratory Results - last 24 hr 01/16/17 01/16/17 Range/Units 05:07 05:57 WBC 3.63 L (4.23-9.07) K/mm3 RBC 4.44 L (4.63-6.08) M/mm3 Hgb 14.3 (13.7-17.5) gm/L Hct 41.7 (40.1-51.0) % MCV 93.9 H (79.0-92.2) fl MCH 32.2 (25.7-32.2) pg MCHC 34.3 (32.2-35.5) g/dl RDW Std Deviation 46.0 H (35.1-43.9) fL Plt Count 60 L (163-337) K/mm3 MPV 10.4 (9.4-12.3) fl Neut % (Auto) 64.7 (34.0-67.9) % Lymph % (Auto) 22.6 (21.8-53.1) % Runnels % (Auto) 8.5 (5.3-12.2) % Eos % (Auto) 3.3 (0.8-7.0) Baso % (Auto) 0.6 (0.1-1.2) % Neut # (Auto) 2.35 (1.78-5.38) K/mm3 Lymph # (Auto) 0.82 L (1.32-3.57) K/mm3 Runnels # (Auto) 0.31 (0.30-0.82) K/mm3 Eos # (Auto) 0.12 (0.04-0.54) K/mm3 Baso # (Auto) 0.02 (0.01-0.08) K/mm3 Manual Slide Review Abnormal smear Sodium 141 (136-145) mEq/L Potassium 3.4 L (3.5-5.1) mEq/L Chloride 107 (98-107) mEq/L Carbon Dioxide 23 (21-32) mEq/L Anion Gap 14.4 (5-15) BUN 7 (7-18) mg/dL Creatinine 0.7 (0.7-1.3) mg/dL Est Cr Clr Drug Dosing 136.40 mL/min Estimated GFR (MDRD) > 60 (>60) mL/min BUN/Creatinine Ratio 10.0 L (14-18) Glucose 102 (74-106) mg/dL Calcium 8.7 (8.5-10.1) mg/dL Magnesium 1.7 L (1.8-2.4) mg/dl Med Orders - Current: Current Medications Acetaminophen (Tylenol) 650 mg PO Q4H PRN PRN Reason: Pain (Mild 1-3)/fever Hydrocodone Bitart/Acetaminophen (Richmond 325-5 Mg) 1 tab PO Q4H PRN PRN Reason: Pain (moderate 4-6) Albuterol/Ipratropium (Duoneb 3.0-0.5 Mg/3 Ml) 3 ml NEB Q4HRRT PRN PRN Reason: Shortness Of Breath/wheezing Bisacodyl (Dulcolax) 5 mg PO DAILY PRN PRN Reason: Constipation Chlordiazepoxide HCl (Librium) 25 mg PO TID [facility] Last Admin: 01/16/17 08:01 Dose: 25 mg Clonidine HCl (Catapres) 0.1 mg PO Q4H PRN PRN Reason: Agitation Docusate Sodium (Colace) 100 mg PO BID PRN PRN Reason: Constipation Famotidine (Pepcid) 20 mg PO Q12H [facility] Last Admin: 01/16/17 08:01 Dose: 20 mg Folic Acid (Folic Acid) 1 mg PO DAILY [facility] Stop: 01/17/17 09:01 Last Admin: 01/16/17 08:01 Dose: 1 mg Hydralazine HCl (Apresoline) 20 mg IVPUSH Q4H PRN PRN Reason: Hypertension Last Admin: 01/15/17 02:32 Dose: 20 mg Hydromorphone HCl (Dilaudid) 0.25 mg IVPUSH Q2H PRN PRN Reason: Pain (severe 7-10) Dextrose/Sodium Chloride (Dextrose 5%-Normal Saline) 1,000 mls @ 125 mls/hr IV ASDIRECTED [facility] Last Admin: 01/15/17 18:16 Dose: 125 mls/hr Promethazine HCl 12.5 mg/ (Sodium Chloride) 50.5 mls @ 100 mls/hr IV Q6H PRN PRN Reason: Nausea/Vomiting Magnesium Sulfate 2 gm/ Premix 50 mls @ 25 mls/hr IV ONETIME ONE Stop: 01/16/17 14:09 Ibuprofen (Motrin) 600 mg PO Q6H PRN PRN Reason: Pain (moderate 4-6) Lorazepam (Ativan) 2 mg IVPUSH Q4H PRN PRN Reason: Seizures Last Admin: 01/15/17 00:40 Dose: 2 mg Lorazepam (Ativan) 0 mg IVPUSH Q4H PRN; Protocol PRN Reason: Withdrawal Symptoms Last Admin: 01/16/17 09:53 Dose: 1 mg Metoprolol Tartrate (Lopressor) 5 mg IVPUSH Q4H PRN PRN Reason: Tachycardia Last Admin: 01/15/17 03:19 Dose: 5 mg Miscellaneous Information (Remove Patch) 1 ea TRDERM DAILY [facility] Last Admin: 01/16/17 08:05 Dose: 1 ea Multivitamins (Thera) 1 each PO DAILY [facility] Last Admin: 01/16/17 08:01 Dose: 1 each Nicotine (Habitrol) 21 mg TRDERM DAILY [facility] Last Admin: 01/16/17 08:01 Dose: 21 mg Ondansetron HCl (Zofran) 4 mg IV Q6H PRN PRN Reason: Nausea/Vomiting Polyethylene Glycol (Miralax) 17 gm PO DAILY PRN PRN Reason: Constipation Quetiapine Fumarate (Seroquel) 25 mg PO BID [facility] Last Admin: 01/16/17 08:01 Dose: 25 mg Senna/Docusate Sodium (Senna Plus) 1 tab PO BID PRN PRN Reason: Constipation Temazepam (Restoril) 15 mg PO BEDTIME PRN PRN Reason: Sleep Last Admin: 01/16/17 00:08 Dose: 15 mg Thiamine HCl (Vitamin B-1) 100 mg PO DAILY [facility] Last Admin: 01/16/17 08:01 Dose: 100 mg Discontinued Medications Chlordiazepoxide HCl (Librium) 25 mg PO ONETIME ONE Stop: 01/14/17 22:03 Last Admin: 01/14/17 22:10 Dose: 25 mg Chlordiazepoxide HCl (Librium) 75 mg PO ONETIME ONE Stop: 01/14/17 23:07 Last Admin: 01/15/17 00:33 Dose: 75 mg Diphenhydramine HCl (Benadryl) 50 mg IVPUSH ONETIME ONE Stop: 01/14/17 23:52 Last Admin: 01/15/17 00:33 Dose: 50 mg Folic Acid (Folic Acid) 1 mg PO ONETIME ONE Stop: 01/14/17 23:53 Last Admin: 01/15/17 00:33 Dose: 1 mg Thiamine HCl 200 mg/ Sodium (Chloride) 52 mls @ 100 mls/hr IV ONETIME ONE Stop: 01/14/17 23:22 Last Admin: 01/15/17 00:39 Dose: 100 mls/hr Magnesium Sulfate (Pharmacy To Dose - Magnesium Replacement) 1 dose .XX ASDIRECTED [facility] Pantoprazole Sodium (Protonix Iv) 40 mg IV ONETIME ONE Stop: 01/15/17 22:53 Last Admin: 01/16/17 07:22 Dose: Not Given Potassium Chloride (Pharmacy To Dose - Potassium Replacement) 1 dose .XX ASDIRECTED [facility] Potassium Chloride (Klor-Con M20) 20 meq PO Q3H CLYDE Stop: 01/15/17 02:01 Last Admin: 01/15/17 05:15 Dose: Not Given Potassium Chloride (Klor-Con M20) 40 meq PO Q4H [facility] Stop: 01/15/17 17:01 Last Admin: 01/15/17 17:53 Dose: 40 meq Quetiapine Fumarate (Seroquel) 50 mg PO ONETIME ONE Stop: 01/15/17 23:06 Quetiapine Fumarate (Seroquel) 50 mg PO ONETIME ONE Stop: 01/14/17 23:51 Last Admin: 01/15/17 00:33 Dose: 50 mg - Exam Quality Assessment: DVT prophylaxis General: alert, oriented, cooperative, no acute distress HEENT: Pupils equal, Pupils reactive, EOMI Neck: supple, trachea midline, no JVD Lungs: Clear to auscultation, Normal respiratory effort Cardiovascular: Regular Rate Abdomen: bowel sounds present, soft, no tenderness, no distension (Male) Exam: Deferred Back Exam: Normal Inspection Extremities: normal pulses Neurological: no new focal deficit Psy/Mental Status: alert, normal affect, normal mood - Problem List & Annotations (1) Anxiety SNOMED Code(s): 43545246 Code(s): F41.9 - ANXIETY DISORDER, UNSPECIFIED Status: Acute Current Visit: Yes (2) Depression SNOMED Code(s): 61355673 Code(s): F32.9 - MAJOR DEPRESSIVE DISORDER, SINGLE EPISODE, UNSPECIFIED Status: Acute Current Visit: Yes (3) Anxiety SNOMED Code(s): 48337975 Code(s): F41.9 - ANXIETY DISORDER, UNSPECIFIED Status: Acute Current Visit: Yes - Problem List Review Problem List Initiated/Reviewed/Updated: Yes - My Orders Last 24 Hours: My Active Orders 01/16/17 12:10 Magnesium Sulfate/Water [Magnesium Sulfate 2 GM in Water 50 ML] 2 gm Premix Bag 1 bag IV ONETIME - Plan Plan:: Assessment: ETOH Detoxification with Withdrawal Symptoms - CIWA protocol: CIWA score considerably elevated - Ativan/Librium/Clonidine/Seroquel - Hydralzine and IVP BB for HR/BP control - Ativan for Abortive Seizure and Withdrawal Symptoms - Restoril for Insomnia Tobacco Dependence - Smokes 2-3 packs a day - Nicotine patch - Counseled on Smoking Cessation 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
--- NOTE | 2017-01-16 12:18 | CONS ---
CONSULTING PHYSICIAN: Zak Aburto MD DATE OF CONSULTATION: 01/16/2017 IDENTIFICATION: The patient is a 36-year-old male, who is admitted to the [facility] MICU in [place], [place] on 01/14/2017. He is seen for psychiatric evaluation. CHIEF COMPLAINT: "Relapse." HISTORY OF PRESENT ILLNESS: The patient is a 36-year-old male, who reports that he had been sober for over a year and then relapsed about 3 months ago. He states he has been drinking regularly for the past 3 months and he has been drinking "up to a case of beer" a day, sometimes a little bit of hard liquor "but not too much, it is usually just a beer." The patient states that he had achieved success with sobriety through AA and he wants to get sober and he feels that he needs to go to inpatient treatment at this point in time. He states he made some phone calls and "they want me to come here and detox" before he is going to treatment. The patient denies any psychiatric issues. Denies any suicidal or homicidal. He does report he is "hearing some sounds and seen some things out of the corners of my eyes" since he has not been drinking, but otherwise he states that if he can get sober, his moods are usually pretty good and he does not have any psychiatric issues. He just wants go to treatment at this point in time. MEDICATIONS: At the time of presentation, none on admission but since admission, the patient has been placed on: 1. Librium 25 mg t.i.d. 2. Seroquel 25 mg b.i.d. 3. Folic acid 1 mg daily. 4. Thiamine 100 mg daily. 5. Multivitamin. 6. Nicotine patch. 7. Potassium supplements. 8. Protonix. 9. Ativan p.r.n. ALLERGIES: No known drug allergies. PAST MEDICAL HISTORY: 1. Hypertension. 2. ORIF and tendon repair. REVIEW OF SYSTEMS: Aside from cardiovascular and musculoskeletal, all other major organ systems are negative at this point in time for acute difficulties or complications.. FAMILY, PSYCHIATRIC, AND CD HISTORY: The patient reports a history of alcoholism in both mother and father. PAST PSYCHIATRIC AND CD HISTORY: Essentially negative for psych. The patient denies any previous psychiatric hospitalizations, suicide attempts, self-injurious behaviors, or eating disorder history. Denies any past psychiatric medication history. Reports 6 chemical dependency treatments in the past. Most recently, has been using 24 beers a day and maybe a pint occasionally in addition to the case of beer. Longest sobriety has been for 1 year. He has had detox admissions x6. He has been to AA in the past and this has helped him. SOCIAL HISTORY: The patient was born and raised in [place], [place]. He is an only child. The patient's parents were throughout childhood and adolescence. Father is a bar supervisor calibration. Mother also worked at the bar. The patient's highest level of education is a GED. 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 Never been . He has 2 boys from a previous relationship. He has been involved in current relationship for 1 year and his girlfriend also works at the [employer]. The patient lives in [place], [place] with his girlfriend. Denies any prior service or any current legal difficulties. He was raised Spiritism. He enjoys fishing and hunting. MENTAL STATUS EXAM: The patient is a 36-year-old white male, in no apparent distress. Speech is of regular rate and rhythm. The patient is cognitively oriented x3. Psychomotor activity is within normal limits. There are no abnormal motor movements or tics observed. Gait and station are not observed. This patient is bedbound during the course of the interview. Mood is okay. Affect is cooperative overall for the purposes of the inpatient consult. There is no behavioral or stated evidence of acute suicidal or homicidal ideation. Thought content is significant for non-command type auditory hallucinations and visual hallucinations. Thought processes are organized and there are no acute manic symptoms or loose associations evident. Judgment and insight appear unimpaired at this point in time. Motivation for help appears good. VITAL SIGNS: 125/90, 98, 20, 97.3 degrees. IMPRESSION: Slaughter I: 1. Alcohol dependence, F10.20. 2. Psychosis, not otherwise specified, F29. Slaughter II: None. Slaughter III: 1. Withdrawal symptoms. 2. Hypertension. 3. Open reduction and internal fixation/tendon repair. Slaughter IV: Severe. Slaughter V: 50 to 55. PLAN: 1. Sobriety. 2. AA rep. 3. Pastoral guidance. 4. CD consult. 5. Inpatient chemical dependency treatment is recommended when the patient is medically stable. 6. Continue Seroquel 25 mg b.i.d. 7. Continue Librium 25 t.i.d. 8. Continue folic acid supplementation. 9. Continue thiamine supplementation. 10.Continue Ativan p.r.n. 11.[facility] protocol. 12.Recommend the patient follow up with outpatient psychiatry on an as needed basis once he is medically stable and through treatment. 13.We will continue follow up with the patient on a regular basis as needed while he remains on the inpatient MICU. 14.We will follow up with the patient sooner if any complications in the interim. 15.Crisis plan is in place. JON /[id number]
[2017-01-16] MEDS: Dextrose 5%-0.9% NaCl 1,000 ML IV SCH (12:50)
[2017-01-16] MEDS: Potassium Chloride 10% 20 MEQ/15 ML Soln 30 ML UD Cup PO SCH (16:05)
[2017-01-17] MEDS: LORazepam 2 MG/ML MDV IVPUSH PRN ×10 (04:02→22:36)
[2017-01-17] MEDS: Thiamine 100 MG Tab PO SCH (08:03)
[2017-01-17] MEDS: Multivitamins,Therapeutic Tab PO SCH (08:03)
[2017-01-17] MEDS: chlordiazePOXIDE 25 MG Cap PO SCH ×4 (08:03→20:08)
[2017-01-17] MEDS: Famotidine 20 MG Tab PO SCH ×3 (08:04→20:08)
[2017-01-17] MEDS: Folic Acid 1 MG Tab PO SCH (08:04)
[2017-01-17] MEDS: cloNIDine 0.1 MG Tab PO PRN (08:04)
[2017-01-17] MEDS: QUEtiapine 25 MG Tab PO SCH ×3 (08:04→20:08)
[2017-01-17] MEDS: Potassium Chloride 10% 20 MEQ/15 ML Soln 30 ML UD Cup PO SCH ×3 (08:05→20:08)
[2017-01-17] MEDS: Nicotine 21 MG/24 Hr Patch TRDERM SCH ×2 (08:05→14:22)
--- NOTE | 2017-01-17 09:51 | CONS ---
CONSULTING PHYSICIAN: Rohan Ferguson LAC DATE OF CONSULTATION: 01/17/2017 TIME: 08:24. CHIEF COMPLAINT: The patient is a 36-year-old male who was admitted to [facility] ICU on 01/14/2017 with alcohol intoxication. The patient is requesting detox and intervention. His medical treatment team requested an alcohol and drug evaluation on Wednesday01/14/2017; however, the patient was not able to participate in the evaluation. On Sunday January 15, 2017, I received a phone call at approximately 1100 hours from patient's nurse Gina Jauregui stating that the patient was now able to complete an alcohol and drug evaluation. I arrived at [facility] at approximately 1430 hours on 01/15/2017, obtained hospital records, completed background research, and pulled a prescription drug monitoring report, and JOSUE was signed to include the patient's girlfriend in the evaluation which lasted 60 minutes. SOURCE OF INFORMATION: Hospital records, background research, collateral information, and prescription drug monitoring report. HISTORY OF PRESENT ILLNESS: The patient reports that he was born and raised in [place], [place] by his biological parents. He states his father and both grandfathers were "raging alcoholics" and his mother is a "social drinker." The family owns the past time [employer] in [place], [place]. The patient reports that he started drinking at age 12 and after multiple MIPs, was sent to the [facility] in [facility] at age 15, where he spent 6 months at this facility. After his release, he started drinking again at least a 6 pack daily and was revoked by probation. He was ordered to complete treatment at [facility] in [place] and subsequently sent to [facility] where he remained until he was 18. The patient obtained his GED during his time at [facility]. 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 He states he continued to drink anywhere from a 6 pack to a 12 pack daily. At about age 21, he was involved in a serious relationship and they had their 1st child. 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 The patient reports that he did use methamphetamine while he worked on the [employer], however it was not long-term use as alcohol is his drug of choice. He continued to drink daily 12 to a case of beer. He and his girlfriend broke up and he states that is when his real drinking began and he would drink a case of beer and a bottle of whiskey daily. The patient states this pattern lasted "for years" estimating approximately 10 years. In 2013, his drinking came to a head when he received a disorderly conduct and was ordered to complete substance abuse treatment, anger management, and a year of AA as well as the 01/02 Program. He states that he did get involved with AA in his area and was able to stay sober for that year, however, he went back to drinking in 2014 when he was off the 01/02 Program and has been drinking approximately 24 beers daily and once a month a pint of BV whiskey. This pattern lasted until June 2016 when he repeated the pattern of drinking himself to the point where his body rejects alcohol, he then admitted himself to [facility] for detox. He was able to stay sober until October 2016, when he began drinking again, he reports drinking a 24-pack of beer daily and a pint of whiskey monthly to the present which is sustained his normal drinking pattern. The patient is also smoking approximately 2 to 3 packs of cigarettes daily. The patient has participated in approximately 6 residential treatment programs throughout his life with subsequent sobriety times anywhere from 1 day to 1 year. He reports he has detoxed at least 5 times in the hospital setting. DIAGNOSES: The patient meets DSM 5 criteria for the following diagnosis; 1. F10.20, alcohol use disorder, severe. 2. F10.229, alcohol intoxication. 3. F10.232, alcohol withdrawal with perceptual disturbance. 4. F17.200, tobacco use disorder, severe. 5. 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 ASAM DIMENSIONS: 1. Dimension 1: Score 2: The patient has some difficulty tolerating and coping with withdrawal discomfort, intoxication is severe but responds to support and treatment such that the client does not immediately endanger himself, displays signs of moderate to severe withdrawal symptoms. 2. Dimension 2: Score 0: The patient displays full functioning with good ability to cope with physical discomfort and has no medical issues that would complicate treatment. 3. Dimension 3: Score 1+: The patient has difficulty with impulse control and lacks coping skills. He presents with a mild risk of harm to himself or others. Has some limitations in functioning adequately in significant life areas. 4. Dimension 4: Score 1: The patient is motivated with active reinforcement to explore treatment and strategies for change. His girlfriend has given him an ultimatum to their relationship and he is verbalizing a desire to achieve and maintain sobriety. He however appears to be ambivalent about his illness. 5. Dimension 5: Score 3: The patient has little recognition and understanding of relapse and recidivism issues and displays a high vulnerability for further substance use. 6. Dimension 6: Score 2+: The patient is engaged in structured meaningful activity and has a supportive family and significant others. ASSESSMENT SUMMARY: The patient appears to be a man who has battled a biological predisposition to alcohol since age 12. He spent his childhood incarcerated because of drinking and has continued in a regular pattern of drinking and behavior throughout his adult life. He typically works during the day, drinks a 24 pack of beer at night, drinks more heavily on the weekends up to a case of beer, becomes ill and his body rejects the alcohol, and he admits himself for medical detox, and subsequently going to treatment voluntarily. His only meaningful length of sobriety has been forced upon him by the legal system and it appears he needs a controlled environment to achieve and maintain sobriety. His secondary concern to this patient's alcoholism is the severity of his withdrawals. The patient is reporting that historically his withdrawals persist up to 10 days from his last drink. On this admission, his last drink was night 01/14/2017, and the patient states that he drank right before he walked in the hospital doors for his "last hurrah." The patient reports that he experiences delirium tremens including nausea, vomiting, tremors, visual and auditory perceptual disturbances, anxiety, irritability, and restlessness. He reports that typically he has experienced alcohol withdrawal related seizures around day 6 of his withdrawal. The patient's family notes that his last detox at [facility], he was discharged on day 3 and seized at home on day [address] Talamantes was consulted regarding the concern for the patient's delayed response seizures during his withdrawal. Dr. Talamantes recommends that the patient continue to be medically monitored until he is medically stable for discharge. GRACE Bowling was consulted regarding the patient's status and she reports that arrangements have been made for the patient to go to [facility] on 01/18/2017. However, this may be subject to change should Dr. Talamantes assess that the patient is not medically stable to transfer. The patient is not meeting emergent need criteria for an involuntary commitment at this time. The patient presents with a MAGDALENE 0.4; however, this is in normal range for him, he verbalizes insight as a willingness to follow through with treatment, has a desire to quit drinking, has attempted to achieve sobriety during the past 6 months and does not show lack of capacity. The patient's family has been in contact with [facility] this past week, however that facility will not accept the patient's insurance. The family reports they have been looking for a treatment facility that offers different treatment therapies and it may be beneficial to also contact [facility] for an available bed, as they do offer some alternative therapy methods. RECOMMENDATION: The patient meets ASAM criteria for a level 2.5 day treatment. JON /[id number]
[2017-01-17] MEDS ORDERED: Haloperidol Lactate 5 MG/ML SDV IVPUSH PRN (10:01)
[2017-01-17] MEDS ORDERED: chlordiazePOXIDE 25 MG Cap PO ONE (10:30)
--- NOTE | 2017-01-17 11:37 | PCM.PN ---
- General Info Date of Service: 01/17/17 Functional Status: Reports: ambulating, other (agitated, restless) - Review of Systems General: Reports: No Symptoms HEENT: Reports: no symptoms Pulmonary: Reports: no symptoms Cardiovascular: Reports: No Symptoms Gastrointestinal: Reports: No symptoms Genitourinary: Reports: no symptoms Musculoskeletal: Reports: no symptoms Skin: Reports: no symptoms Neurological: Reports: No Symptoms Psychiatric: Reports: mood lability, anxiety, agitation - Patient Data Vitals - most recent: Last Vital Signs Temp 36.4 C 01/17/17 07:49 Pulse 99 01/15/17 20:00 Resp 16 01/17/17 09:48 BP 125/90 01/17/17 09:48 Pulse Ox 98 01/17/17 09:48 Weight - most recent: 71.54 kg I&O - last 24 hours: Intake & Output 01/16/17 01/17/17 01/17/17 22:59 06:59 14:59 Intake Total 2746 1500 0 Output Total 400 Balance 2346 1500 0 Lab Results last 24 hrs: Laboratory Results - last 24 hr 01/16/17 01/17/17 01/17/17 Range/Units 05:07 05:51 05:51 WBC 3.63 L 4.93 (4.23-9.07) K/mm3 RBC 4.44 L 5.19 (4.63-6.08) M/mm3 Hgb 14.3 16.7 (13.7-17.5) gm/L Hct 41.7 48.1 (40.1-51.0) % MCV 93.9 H 92.7 H (79.0-92.2) fl MCH 32.2 32.2 (25.7-32.2) pg MCHC 34.3 34.7 (32.2-35.5) g/dl RDW Std Deviation 46.0 H 44.2 H (35.1-43.9) fL Plt Count 60 L 74 L (163-337) K/mm3 MPV 10.4 11.0 (9.4-12.3) fl Neut % (Auto) 64.7 66.9 (34.0-67.9) % Lymph % (Auto) 22.6 19.3 L (21.8-53.1) % [place] % (Auto) 8.5 9.3 (5.3-12.2) % Eos % (Auto) 3.3 3.7 (0.8-7.0) Baso % (Auto) 0.6 0.6 (0.1-1.2) % Neut # (Auto) 2.35 3.30 (1.78-5.38) K/mm3 Lymph # (Auto) 0.82 L 0.95 L (1.32-3.57) K/mm3 [place] # (Auto) 0.31 0.46 (0.30-0.82) K/mm3 Eos # (Auto) 0.12 0.18 (0.04-0.54) K/mm3 Baso # (Auto) 0.02 0.03 (0.01-0.08) K/mm3 Manual Slide Review Abnormal smear Abnormal smear Sodium 138 (136-145) mEq/L Potassium 3.3 L (3.5-5.1) mEq/L Chloride 101 (98-107) mEq/L Carbon Dioxide 25 (21-32) mEq/L Anion Gap 15.3 H (5-15) BUN 4 L (7-18) mg/dL Creatinine 0.8 (0.7-1.3) mg/dL Est Cr Clr Drug Dosing 119.35 mL/min Estimated GFR (MDRD) > 60 (>60) mL/min BUN/Creatinine Ratio 5.0 L (14-18) Glucose 86 (74-106) mg/dL Calcium 9.4 (8.5-10.1) mg/dL Magnesium 1.8 (1.8-2.4) mg/dl Med Orders - Current: Current Medications Acetaminophen (Tylenol) 650 mg PO Q4H PRN PRN Reason: Pain (Mild 1-3)/fever Hydrocodone Bitart/Acetaminophen ([place] 325-5 Mg) 1 tab PO Q4H PRN PRN Reason: Pain (moderate 4-6) Albuterol/Ipratropium (Duoneb 3.0-0.5 Mg/3 Ml) 3 ml NEB Q4HRRT PRN PRN Reason: Shortness Of Breath/wheezing Bisacodyl (Dulcolax) 5 mg PO DAILY PRN PRN Reason: Constipation Chlordiazepoxide HCl (Librium) 50 mg PO TID [facility] Clonidine HCl (Catapres) 0.1 mg PO Q4H PRN PRN Reason: Agitation Last Admin: 01/17/17 08:04 Dose: 0.1 mg Docusate Sodium (Colace) 100 mg PO BID PRN PRN Reason: Constipation Famotidine (Pepcid) 20 mg PO Q12H [facility] Last Admin: 01/17/17 08:04 Dose: 20 mg Haloperidol Lactate (Haldol) 1 mg IVPUSH Q6H [facility] Hydralazine HCl (Apresoline) 20 mg IVPUSH Q4H PRN PRN Reason: Hypertension Last Admin: 01/15/17 02:32 Dose: 20 mg Hydromorphone HCl (Dilaudid) 0.25 mg IVPUSH Q2H PRN PRN Reason: Pain (severe 7-10) Promethazine HCl 12.5 mg/ (Sodium Chloride) 50.5 mls @ 100 mls/hr IV Q6H PRN PRN Reason: Nausea/Vomiting Ibuprofen (Motrin) 600 mg PO Q6H PRN PRN Reason: Pain (moderate 4-6) Lorazepam (Ativan) 2 mg IVPUSH Q4H PRN PRN Reason: Seizures Last Admin: 01/17/17 10:50 Dose: 2 mg Lorazepam (Ativan) 0 mg IVPUSH Q4H PRN; Protocol PRN Reason: Withdrawal Symptoms Last Admin: 01/17/17 10:53 Dose: 1 mg Lorazepam (Ativan) 3 mg IVPUSH Q4H PRN PRN Reason: Anxiety Metoprolol Tartrate (Lopressor) 5 mg IVPUSH Q4H PRN PRN Reason: Tachycardia Last Admin: 01/15/17 03:19 Dose: 5 mg Miscellaneous Information (Remove Patch) 1 ea TRDERM DAILY [facility] Last Admin: 01/17/17 08:05 Dose: 1 ea Multivitamins (Thera) 1 each PO DAILY [facility] Last Admin: 01/17/17 08:03 Dose: 1 each Nicotine (Habitrol) 21 mg TRDERM DAILY [facility] Last Admin: 01/17/17 08:05 Dose: 21 mg Ondansetron HCl (Zofran) 4 mg IV Q6H PRN PRN Reason: Nausea/Vomiting Polyethylene Glycol (Miralax) 17 gm PO DAILY PRN PRN Reason: Constipation Potassium Chloride (Potassium Chloride) 40 meq PO BID [facility] Quetiapine Fumarate (Seroquel) 25 mg PO BID [facility] Last Admin: 01/17/17 08:04 Dose: 25 mg Senna/Docusate Sodium (Senna Plus) 1 tab PO BID PRN PRN Reason: Constipation Temazepam (Restoril) 15 mg PO BEDTIME PRN PRN Reason: Sleep Last Admin: 01/16/17 23:39 Dose: 15 mg Thiamine HCl (Vitamin B-1) 100 mg PO DAILY [facility] Last Admin: 01/17/17 08:03 Dose: 100 mg Discontinued Medications Chlordiazepoxide HCl (Librium) 25 mg PO ONETIME ONE Stop: 01/14/17 22:03 Last Admin: 01/14/17 22:10 Dose: 25 mg Chlordiazepoxide HCl (Librium) 75 mg PO ONETIME ONE Stop: 01/14/17 23:07 Last Admin: 01/15/17 00:33 Dose: 75 mg Chlordiazepoxide HCl (Librium) 25 mg PO TID [facility] Last Admin: 01/17/17 08:03 Dose: 25 mg Chlordiazepoxide HCl (Librium) 25 mg PO ONETIME ONE Stop: 01/17/17 10:31 Last Admin: 01/17/17 10:40 Dose: 25 mg Diphenhydramine HCl (Benadryl) 50 mg IVPUSH ONETIME ONE Stop: 01/14/17 23:52 Last Admin: 01/15/17 00:33 Dose: 50 mg Folic Acid (Folic Acid) 1 mg PO DAILY [facility] Stop: 01/17/17 09:01 Last Admin: 01/17/17 08:04 Dose: 1 mg Folic Acid (Folic Acid) 1 mg PO ONETIME ONE Stop: 01/14/17 23:53 Last Admin: 01/15/17 00:33 Dose: 1 mg Haloperidol Lactate (Haldol) 1 mg IVPUSH Q6H PRN PRN Reason: restlessness Last Admin: 01/17/17 10:18 Dose: 1 mg Dextrose/Sodium Chloride (Dextrose 5%-Normal Saline) 1,000 mls @ 125 mls/hr IV ASDIRECTED [facility] Last Admin: 01/16/17 12:50 Dose: 125 mls/hr Thiamine HCl 200 mg/ Sodium (Chloride) 52 mls @ 100 mls/hr IV ONETIME ONE Stop: 01/14/17 23:22 Last Admin: 01/15/17 00:39 Dose: 100 mls/hr Magnesium Sulfate 2 gm/ Premix 50 mls @ 25 mls/hr IV ONETIME ONE Stop: 01/16/17 14:09 Last Admin: 01/16/17 12:34 Dose: 25 mls/hr Magnesium Sulfate (Pharmacy To Dose - Magnesium Replacement) 1 dose .XX ASDIRECTED [facility] Pantoprazole Sodium (Protonix Iv) 40 mg IV ONETIME ONE Stop: 01/15/17 22:53 Last Admin: 01/16/17 07:22 Dose: Not Given Potassium Chloride (Pharmacy To Dose - Potassium Replacement) 1 dose .XX ASDIRECTED [facility] Potassium Chloride (Klor-Con M20) 20 meq PO Q3H [facility] Stop: 01/15/17 02:01 Last Admin: 01/15/17 05:15 Dose: Not Given Potassium Chloride (Klor-Con M20) 40 meq PO Q4H [facility] Stop: 01/15/17 17:01 Last Admin: 01/15/17 17:53 Dose: 40 meq Potassium Chloride (Potassium Chloride) 40 meq PO DAILY [facility] Last Admin: 01/17/17 08:05 Dose: 40 meq Quetiapine Fumarate (Seroquel) 50 mg PO ONETIME ONE Stop: 01/15/17 23:06 Quetiapine Fumarate (Seroquel) 50 mg PO ONETIME ONE Stop: 01/14/17 23:51 Last Admin: 01/15/17 00:33 Dose: 50 mg - Exam Quality Assessment: DVT prophylaxis General: alert, oriented, mild distress HEENT: Pupils equal, Pupils reactive, EOMI Neck: supple, trachea midline Lungs: Normal respiratory effort Cardiovascular: Regular Rate, Regular Rhythm Abdomen: bowel sounds present, soft, no tenderness, no distension (Male) Exam: Deferred Back Exam: Normal Inspection Skin: warm Neurological: no new focal deficit Psy/Mental Status: alert, labile mood, anxious, agitated - Problem List & Annotations (1) Anxiety SNOMED Code(s): 55316845 Code(s): F41.9 - ANXIETY DISORDER, UNSPECIFIED Status: Acute Current Visit: Yes (2) Depression SNOMED Code(s): 85776621 Code(s): F32.9 - MAJOR DEPRESSIVE DISORDER, SINGLE EPISODE, UNSPECIFIED Status: Acute Current Visit: Yes - Problem List Review Problem List Initiated/Reviewed/Updated: Yes - My Orders Last 24 Hours: My Active Orders 01/17/17 10:04 LORazepam [Ativan] 3 mg IVPUSH Q4H PRN chlordiazePOXIDE [Librium] 50 mg PO TID 01/17/17 16:00 Haloperidol Lactate [Haldol] 1 mg IVPUSH Q6H 01/17/17 21:00 Potassium Chloride 40 meq PO BID - Plan Plan:: Assessment: ETOH Detoxification with Withdrawal Symptoms - CIWA protocol: CIWA score considerably elevated - Ativan/Librium/Clonidine/Seroquel - Hydralzine and IVP BB for HR/BP control - Ativan for Abortive Seizure and Withdrawal Symptoms - Restoril for Insomnia Tobacco Dependence - Smokes 2-3 packs a day - Nicotine patch - Counseled on Smoking Cessation Chronic ETOH 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
[2017-01-17] MEDS ORDERED: QUEtiapine 25 MG Tab PO ONE (14:39)
[2017-01-17] MEDS ORDERED: Haloperidol Lactate 5 MG/ML SDV IVPUSH SCH (16:00)
[2017-01-17] MEDS: LORazepam 1 MG Tab PO PRN ×2 (19:53→22:36)
[2017-01-17] MEDS: Haloperidol Lactate 5 MG/ML SDV IVPUSH SCH (21:25)
[2017-01-17] MEDS: Temazepam 15 MG Cap PO PRN (21:25)
[2017-01-18] MEDS: LORazepam 1 MG Tab PO PRN ×6 (00:52→20:21)
[2017-01-18] MEDS: LORazepam 2 MG/ML MDV IVPUSH PRN ×3 (00:53→06:07)
[2017-01-18] MEDS: Haloperidol Lactate 5 MG/ML SDV IVPUSH SCH ×3 (03:10→15:10)
[2017-01-18] MEDS: QUEtiapine 25 MG Tab PO SCH ×2 (09:05→20:19)
[2017-01-18] MEDS: Potassium Chloride 10% 20 MEQ/15 ML Soln 30 ML UD Cup PO SCH ×2 (09:06→20:27)
[2017-01-18] MEDS: Multivitamins,Therapeutic Tab PO SCH (09:06)
[2017-01-18] MEDS: chlordiazePOXIDE 25 MG Cap PO SCH ×3 (09:06→20:20)
[2017-01-18] MEDS: Thiamine 100 MG Tab PO SCH (09:06)
[2017-01-18] MEDS: Famotidine 20 MG Tab PO SCH ×2 (09:06→20:22)
[2017-01-18] MEDS: Nicotine 21 MG/24 Hr Patch TRDERM SCH (09:10)
[2017-01-18] MEDS ORDERED: QUEtiapine 25 MG Tab PO ONE (09:45)
[2017-01-18] MEDS ORDERED: chlordiazePOXIDE 25 MG Cap PO ONE ×2 (12:30→19:34)
--- NOTE | 2017-01-18 14:46 | PCM.PN ---
- General Info Date of Service: 01/18/17 Subjective Update: Elevated CIWA, requires high dose of medication. Functional Status: Reports: ambulating, urinating - Review of Systems General: Reports: No Symptoms HEENT: Reports: no symptoms Pulmonary: Reports: no symptoms Cardiovascular: Reports: No Symptoms Gastrointestinal: Reports: No symptoms Genitourinary: Reports: no symptoms Musculoskeletal: Reports: no symptoms Skin: Reports: no symptoms Neurological: Reports: No Symptoms Psychiatric: Reports: anxiety - Patient Data Vitals - most recent: Last Vital Signs Temp 36.2 C 01/18/17 12:00 Pulse 99 01/15/17 20:00 Resp 14 01/18/17 12:00 BP 116/88 01/18/17 12:00 Pulse Ox 99 01/18/17 12:00 Weight - most recent: 71.54 kg I&O - last 24 hours: Intake & Output 01/17/17 01/18/17 01/18/17 22:59 06:59 14:59 Intake Total 0 1999 200 Balance 0 1999 200 Lab Results last 24 hrs: Laboratory Results - last 24 hr 01/18/17 01/18/17 Range/Units 10:32 10:32 WBC 5.98 (4.23-9.07) K/mm3 RBC 5.13 (4.63-6.08) M/mm3 Hgb 16.4 (13.7-17.5) gm/L Hct 48.0 (40.1-51.0) % MCV 93.6 H (79.0-92.2) fl MCH 32.0 (25.7-32.2) pg MCHC 34.2 (32.2-35.5) g/dl RDW Std Deviation 45.3 H (35.1-43.9) fL Plt Count 87 L (163-337) K/mm3 MPV 10.4 (9.4-12.3) fl Sodium 137 (136-145) mEq/L Potassium 4.1 (3.5-5.1) mEq/L Chloride 103 (98-107) mEq/L Carbon Dioxide 25 (21-32) mEq/L Anion Gap 13.1 (5-15) BUN 8 (7-18) mg/dL Creatinine 0.9 (0.7-1.3) mg/dL Est Cr Clr Drug Dosing 106.09 mL/min Estimated GFR (MDRD) > 60 (>60) mL/min BUN/Creatinine Ratio 8.9 L (14-18) Glucose 136 H (74-106) mg/dL Calcium 9.6 (8.5-10.1) mg/dL Magnesium 1.7 L (1.8-2.4) mg/dl Med Orders - Current: Current Medications Acetaminophen (Tylenol) 650 mg PO Q4H PRN PRN Reason: Pain (Mild 1-3)/fever Hydrocodone Bitart/Acetaminophen ([place] 325-5 Mg) 1 tab PO Q4H PRN PRN Reason: Pain (moderate 4-6) Albuterol/Ipratropium (Duoneb 3.0-0.5 Mg/3 Ml) 3 ml NEB Q4HRRT PRN PRN Reason: Shortness Of Breath/wheezing Bisacodyl (Dulcolax) 5 mg PO DAILY PRN PRN Reason: Constipation Chlordiazepoxide HCl (Librium) 75 mg PO TID [facility] Clonidine HCl (Catapres) 0.1 mg PO Q4H PRN PRN Reason: Agitation Last Admin: 01/17/17 08:04 Dose: 0.1 mg Docusate Sodium (Colace) 100 mg PO BID PRN PRN Reason: Constipation Famotidine (Pepcid) 20 mg PO Q12H [facility] Last Admin: 01/18/17 09:06 Dose: 20 mg Haloperidol Lactate (Haldol) 2 mg IVPUSH Q6H [facility] Last Admin: 01/18/17 09:06 Dose: 2 mg Hydralazine HCl (Apresoline) 20 mg IVPUSH Q4H PRN PRN Reason: Hypertension Last Admin: 01/15/17 02:32 Dose: 20 mg Hydromorphone HCl (Dilaudid) 0.25 mg IVPUSH Q2H PRN PRN Reason: Pain (severe 7-10) Promethazine HCl 12.5 mg/ (Sodium Chloride) 50.5 mls @ 100 mls/hr IV Q6H PRN PRN Reason: Nausea/Vomiting Ibuprofen (Motrin) 600 mg PO Q6H PRN PRN Reason: Pain (moderate 4-6) Lorazepam (Ativan) 2 mg IVPUSH Q4H PRN PRN Reason: Seizures Last Admin: 01/17/17 10:50 Dose: 2 mg Lorazepam (Ativan) 0 mg IVPUSH Q4H PRN; Protocol PRN Reason: Withdrawal Symptoms Last Admin: 01/17/17 18:33 Dose: 2 mg Lorazepam (Ativan) 3 mg IVPUSH Q4H PRN PRN Reason: Anxiety Last Admin: 01/18/17 06:07 Dose: 3 mg Lorazepam (Ativan) 2 mg PO Q3H PRN PRN Reason: Anxiety Last Admin: 01/18/17 09:20 Dose: 2 mg Metoprolol Tartrate (Lopressor) 5 mg IVPUSH Q4H PRN PRN Reason: Tachycardia Last Admin: 01/15/17 03:19 Dose: 5 mg Miscellaneous Information (Remove Patch) 1 ea TRDERM DAILY [facility] Last Admin: 01/18/17 09:12 Dose: 1 ea Multivitamins (Thera) 1 each PO DAILY [facility] Last Admin: 01/18/17 09:06 Dose: 1 each Nicotine (Habitrol) 21 mg TRDERM DAILY [facility] Last Admin: 01/18/17 09:10 Dose: 21 mg Ondansetron HCl (Zofran) 4 mg IV Q6H PRN PRN Reason: Nausea/Vomiting Polyethylene Glycol (Miralax) 17 gm PO DAILY PRN PRN Reason: Constipation Potassium Chloride (Potassium Chloride) 40 meq PO BID [facility] Last Admin: 01/18/17 09:06 Dose: 40 meq Quetiapine Fumarate (Seroquel) 50 mg PO BID [facility] Senna/Docusate Sodium (Senna Plus) 1 tab PO BID PRN PRN Reason: Constipation Temazepam (Restoril) 15 mg PO BEDTIME PRN PRN Reason: Sleep Last Admin: 01/17/17 21:25 Dose: 15 mg Thiamine HCl (Vitamin B-1) 100 mg PO DAILY [facility] Last Admin: 01/18/17 09:06 Dose: 100 mg Discontinued Medications Chlordiazepoxide HCl (Librium) 25 mg PO ONETIME ONE Stop: 01/14/17 22:03 Last Admin: 01/14/17 22:10 Dose: 25 mg Chlordiazepoxide HCl (Librium) 75 mg PO ONETIME ONE Stop: 01/14/17 23:07 Last Admin: 01/15/17 00:33 Dose: 75 mg Chlordiazepoxide HCl (Librium) 25 mg PO TID [facility] Last Admin: 01/17/17 08:03 Dose: 25 mg Chlordiazepoxide HCl (Librium) 50 mg PO TID [facility] Last Admin: 01/18/17 09:06 Dose: 50 mg Chlordiazepoxide HCl (Librium) 25 mg PO ONETIME ONE Stop: 01/17/17 10:31 Last Admin: 01/17/17 10:40 Dose: 25 mg Chlordiazepoxide HCl (Librium) 25 mg PO ONETIME ONE Stop: 01/18/17 12:31 Last Admin: 01/18/17 13:19 Dose: 25 mg Diphenhydramine HCl (Benadryl) 50 mg IVPUSH ONETIME ONE Stop: 01/14/17 23:52 Last Admin: 01/15/17 00:33 Dose: 50 mg Folic Acid (Folic Acid) 1 mg PO DAILY [facility] Stop: 01/17/17 09:01 Last Admin: 01/17/17 08:04 Dose: 1 mg Folic Acid (Folic Acid) 1 mg PO ONETIME ONE Stop: 01/14/17 23:53 Last Admin: 01/15/17 00:33 Dose: 1 mg Haloperidol Lactate (Haldol) 1 mg IVPUSH Q6H PRN PRN Reason: restlessness Last Admin: 01/17/17 10:18 Dose: 1 mg Haloperidol Lactate (Haldol) 1 mg IVPUSH Q6H [facility] Last Admin: 01/17/17 15:51 Dose: 1 mg Dextrose/Sodium Chloride (Dextrose 5%-Normal Saline) 1,000 mls @ 125 mls/hr IV ASDIRECTED [facility] Last Admin: 01/16/17 12:50 Dose: 125 mls/hr Thiamine HCl 200 mg/ Sodium (Chloride) 52 mls @ 100 mls/hr IV ONETIME ONE Stop: 01/14/17 23:22 Last Admin: 01/15/17 00:39 Dose: 100 mls/hr Magnesium Sulfate 2 gm/ Premix 50 mls @ 25 mls/hr IV ONETIME ONE Stop: 01/16/17 14:09 Last Admin: 01/16/17 12:34 Dose: 25 mls/hr Magnesium Sulfate (Pharmacy To Dose - Magnesium Replacement) 1 dose .XX ASDIRECTED [facility] Pantoprazole Sodium (Protonix Iv) 40 mg IV ONETIME ONE Stop: 01/15/17 22:53 Last Admin: 01/16/17 07:22 Dose: Not Given Potassium Chloride (Pharmacy To Dose - Potassium Replacement) 1 dose .XX ASDIRECTED [facility] Potassium Chloride (Klor-Con M20) 20 meq PO Q3H [facility] Stop: 01/15/17 02:01 Last Admin: 01/15/17 05:15 Dose: Not Given Potassium Chloride (Klor-Con M20) 40 meq PO Q4H [facility] Stop: 01/15/17 17:01 Last Admin: 01/15/17 17:53 Dose: 40 meq Potassium Chloride (Potassium Chloride) 40 meq PO DAILY [facility] Last Admin: 01/17/17 08:05 Dose: 40 meq Quetiapine Fumarate (Seroquel) 50 mg PO ONETIME ONE Stop: 01/15/17 23:06 Quetiapine Fumarate (Seroquel) 25 mg PO BID [facility] Last Admin: 01/18/17 09:05 Dose: 25 mg Quetiapine Fumarate (Seroquel) 50 mg PO ONETIME ONE Stop: 01/14/17 23:51 Last Admin: 01/15/17 00:33 Dose: 50 mg Quetiapine Fumarate (Seroquel) 25 mg PO ONETIME ONE Stop: 01/17/17 14:40 Last Admin: 01/17/17 14:49 Dose: 25 mg Quetiapine Fumarate (Seroquel) 25 mg PO ONETIME ONE Stop: 01/18/17 09:46 Last Admin: 01/18/17 13:19 Dose: 25 mg - Exam Quality Assessment: DVT prophylaxis General: alert, oriented, no acute distress HEENT: Pupils equal, Pupils reactive, EOMI Neck: supple, trachea midline, no JVD Lungs: Clear to auscultation, Normal respiratory effort Cardiovascular: Regular Rate, Tachycardia Abdomen: bowel sounds present, soft, no tenderness, no distension (Male) Exam: Deferred Back Exam: Normal Inspection Extremities: normal pulses Skin: warm Neurological: no new focal deficit Psy/Mental Status: alert, labile mood, anxious - Problem List & Annotations (1) Anxiety SNOMED Code(s): 90464063 Code(s): F41.9 - ANXIETY DISORDER, UNSPECIFIED Status: Acute Current Visit: Yes (2) Depression SNOMED Code(s): 82528908 Code(s): F32.9 - MAJOR DEPRESSIVE DISORDER, SINGLE EPISODE, UNSPECIFIED Status: Acute Current Visit: Yes - Problem List Review Problem List Initiated/Reviewed/Updated: Yes - My Orders Last 24 Hours: My Active Orders 01/17/17 19:31 LORazepam [Ativan] 2 mg PO Q3H PRN 01/17/17 21:00 Potassium Chloride 40 meq PO BID 01/17/17 22:00 Haloperidol Lactate [Haldol] 2 mg IVPUSH Q6H 01/18/17 15:00 chlordiazePOXIDE [Librium] 75 mg PO TID 01/18/17 21:00 QUEtiapine [SEROquel] 50 mg PO BID - Plan Plan:: Assessment: ETOH Detoxification with Withdrawal Symptoms, acutely withdrawing. 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
[2017-01-18] MEDS: Temazepam 15 MG Cap PO PRN (20:19)
[2017-01-18] MEDS: Haloperidol Lactate 5 MG/ML SDV IVPUSH PRN (20:22)
[2017-01-18] MEDS: Nicotine 7 MG/24 Hr Patch TRDERM SCH (20:27)
[2017-01-19] MEDS: LORazepam 1 MG Tab PO PRN ×3 (01:18→20:16)
[2017-01-19] MEDS: Haloperidol Lactate 5 MG/ML SDV IVPUSH PRN ×2 (01:18→04:33)
[2017-01-19] MEDS: Multivitamins,Therapeutic Tab PO SCH (08:48)
[2017-01-19] MEDS: Thiamine 100 MG Tab PO SCH (08:48)
[2017-01-19] MEDS: chlordiazePOXIDE 25 MG Cap PO SCH ×3 (08:48→20:17)
[2017-01-19] MEDS: QUEtiapine 25 MG Tab PO SCH ×2 (08:49→20:17)
[2017-01-19] MEDS: Famotidine 20 MG Tab PO SCH ×2 (08:49→20:18)
[2017-01-19] MEDS: Potassium Chloride 10% 20 MEQ/15 ML Soln 30 ML UD Cup PO SCH ×2 (08:50→22:47)
[2017-01-19] MEDS: Nicotine 21 MG/24 Hr Patch TRDERM SCH (08:50)
[2017-01-19] MEDS: Nicotine 7 MG/24 Hr Patch TRDERM SCH (08:56)
[2017-01-19] MEDS: REMOVE NICOTINE TRDERM SCH (09:16)
[2017-01-19] MEDS ORDERED: Magnesium Sulfate/Water 2 GM in Premix Bag 1 BAG IV ONE (11:39)
--- NOTE | 2017-01-19 14:22 | PCM.PN ---
- General Info Date of Service: 01/19/17 Subjective Update: Wants to leave after 48 hours, and not go to substance abuse center. Functional Status: Reports: tolerating diet, ambulating, urinating - Review of Systems General: Reports: No Symptoms HEENT: Reports: no symptoms Pulmonary: Reports: no symptoms Cardiovascular: Reports: No Symptoms Gastrointestinal: Reports: No symptoms Genitourinary: Reports: no symptoms Musculoskeletal: Reports: no symptoms Skin: Reports: no symptoms Neurological: Reports: No Symptoms Psychiatric: Reports: no symptoms - Patient Data Vitals - most recent: Last Vital Signs Temp 36.9 C 01/19/17 12:01 Pulse 80 01/19/17 12:01 Resp 16 01/19/17 12:01 BP 104/68 01/19/17 12:01 Pulse Ox 96 01/19/17 12:01 Weight - most recent: 71.1 kg I&O - last 24 hours: Intake & Output 01/18/17 01/19/17 01/19/17 22:59 06:59 14:59 Intake Total 700 1999 420 Output Total 200 260 Balance 500 1999 160 Med Orders - Current: Current Medications Acetaminophen (Tylenol) 650 mg PO Q4H PRN PRN Reason: Pain (Mild 1-3)/fever Hydrocodone Bitart/Acetaminophen ([place] 325-5 Mg) 1 tab PO Q4H PRN PRN Reason: Pain (moderate 4-6) Albuterol/Ipratropium (Duoneb 3.0-0.5 Mg/3 Ml) 3 ml NEB Q4HRRT PRN PRN Reason: Shortness Of Breath/wheezing Bisacodyl (Dulcolax) 5 mg PO DAILY PRN PRN Reason: Constipation Chlordiazepoxide HCl (Librium) 75 mg PO TID [facility] Last Admin: 01/19/17 08:48 Dose: 75 mg Clonidine HCl (Catapres) 0.1 mg PO Q4H PRN PRN Reason: Agitation Last Admin: 01/17/17 08:04 Dose: 0.1 mg Docusate Sodium (Colace) 100 mg PO BID PRN PRN Reason: Constipation Famotidine (Pepcid) 20 mg PO Q12H [facility] Last Admin: 01/19/17 08:49 Dose: 20 mg Haloperidol Lactate (Haldol) 5 mg IVPUSH Q3H PRN PRN Reason: Withdrawal Symptoms Last Admin: 01/19/17 04:33 Dose: 5 mg Hydralazine HCl (Apresoline) 20 mg IVPUSH Q4H PRN PRN Reason: Hypertension Last Admin: 01/15/17 02:32 Dose: 20 mg Hydromorphone HCl (Dilaudid) 0.25 mg IVPUSH Q2H PRN PRN Reason: Pain (severe 7-10) Promethazine HCl 12.5 mg/ (Sodium Chloride) 50.5 mls @ 100 mls/hr IV Q6H PRN PRN Reason: Nausea/Vomiting Ibuprofen (Motrin) 600 mg PO Q6H PRN PRN Reason: Pain (moderate 4-6) Lorazepam (Ativan) 2 mg IVPUSH Q4H PRN PRN Reason: Seizures Last Admin: 01/17/17 10:50 Dose: 2 mg Lorazepam (Ativan) 0 mg IVPUSH Q4H PRN; Protocol PRN Reason: Withdrawal Symptoms Last Admin: 01/17/17 18:33 Dose: 2 mg Lorazepam (Ativan) 3 mg IVPUSH Q4H PRN PRN Reason: Anxiety Last Admin: 01/18/17 06:07 Dose: 3 mg Lorazepam (Ativan) 2 mg PO Q3H PRN PRN Reason: Anxiety Last Admin: 01/19/17 04:34 Dose: 2 mg Metoprolol Tartrate (Lopressor) 5 mg IVPUSH Q4H PRN PRN Reason: Tachycardia Last Admin: 01/15/17 03:19 Dose: 5 mg Miscellaneous Information (Remove Patch) 1 ea TRDERM DAILY [facility] Last Admin: 01/19/17 09:15 Dose: 1 ea Miscellaneous Information (Remove Patch) 1 ea TRDERM DAILY [facility] Last Admin: 01/19/17 09:16 Dose: 1 ea Multivitamins (Thera) 1 each PO DAILY [facility] Last Admin: 01/19/17 08:48 Dose: 1 each Nicotine (Habitrol) 21 mg TRDERM DAILY [facility] Last Admin: 01/19/17 08:50 Dose: 21 mg Nicotine (Habitrol) 7 mg TRDERM DAILY [facility] Last Admin: 01/19/17 08:56 Dose: 7 mg Ondansetron HCl (Zofran) 4 mg IV Q6H PRN PRN Reason: Nausea/Vomiting Polyethylene Glycol (Miralax) 17 gm PO DAILY PRN PRN Reason: Constipation Potassium Chloride (Potassium Chloride) 40 meq PO BID [facility] Last Admin: 01/19/17 08:50 Dose: 40 meq Quetiapine Fumarate (Seroquel) 50 mg PO BID [facility] Last Admin: 01/19/17 08:49 Dose: 50 mg Senna/Docusate Sodium (Senna Plus) 1 tab PO BID PRN PRN Reason: Constipation Temazepam (Restoril) 30 mg PO BEDTIME PRN PRN Reason: Sleep Last Admin: 01/18/17 20:19 Dose: 30 mg Thiamine HCl (Vitamin B-1) 100 mg PO DAILY [facility] Last Admin: 01/19/17 08:48 Dose: 100 mg Discontinued Medications Chlordiazepoxide HCl (Librium) 25 mg PO ONETIME ONE Stop: 01/14/17 22:03 Last Admin: 01/14/17 22:10 Dose: 25 mg Chlordiazepoxide HCl (Librium) 75 mg PO ONETIME ONE Stop: 01/14/17 23:07 Last Admin: 01/15/17 00:33 Dose: 75 mg Chlordiazepoxide HCl (Librium) 25 mg PO TID [facility] Last Admin: 01/17/17 08:03 Dose: 25 mg Chlordiazepoxide HCl (Librium) 50 mg PO TID [facility] Last Admin: 01/18/17 09:06 Dose: 50 mg Chlordiazepoxide HCl (Librium) 25 mg PO ONETIME ONE Stop: 01/17/17 10:31 Last Admin: 01/17/17 10:40 Dose: 25 mg Chlordiazepoxide HCl (Librium) 25 mg PO ONETIME ONE Stop: 01/18/17 12:31 Last Admin: 01/18/17 13:19 Dose: 25 mg Chlordiazepoxide HCl (Librium) 75 mg PO ONETIME ONE Stop: 01/18/17 19:35 Last Admin: 01/18/17 20:20 Dose: 75 mg Diphenhydramine HCl (Benadryl) 50 mg IVPUSH ONETIME ONE Stop: 01/14/17 23:52 Last Admin: 01/15/17 00:33 Dose: 50 mg Folic Acid (Folic Acid) 1 mg PO DAILY [facility] Stop: 01/17/17 09:01 Last Admin: 01/17/17 08:04 Dose: 1 mg Folic Acid (Folic Acid) 1 mg PO ONETIME ONE Stop: 01/14/17 23:53 Last Admin: 01/15/17 00:33 Dose: 1 mg Haloperidol Lactate (Haldol) 1 mg IVPUSH Q6H PRN PRN Reason: restlessness Last Admin: 01/17/17 10:18 Dose: 1 mg Haloperidol Lactate (Haldol) 1 mg IVPUSH Q6H [facility] Last Admin: 01/17/17 15:51 Dose: 1 mg Haloperidol Lactate (Haldol) 2 mg IVPUSH Q6H [facility] Last Admin: 01/18/17 15:10 Dose: 2 mg Dextrose/Sodium Chloride (Dextrose 5%-Normal Saline) 1,000 mls @ 125 mls/hr IV ASDIRECTED [facility] Last Admin: 01/16/17 12:50 Dose: 125 mls/hr Thiamine HCl 200 mg/ Sodium (Chloride) 52 mls @ 100 mls/hr IV ONETIME ONE Stop: 01/14/17 23:22 Last Admin: 01/15/17 00:39 Dose: 100 mls/hr Magnesium Sulfate 2 gm/ Premix 50 mls @ 25 mls/hr IV ONETIME ONE Stop: 01/16/17 14:09 Last Admin: 01/16/17 12:34 Dose: 25 mls/hr Magnesium Sulfate 2 gm/ Premix 50 mls @ 25 mls/hr IV ONETIME ONE Stop: 01/19/17 13:38 Last Admin: 01/19/17 11:51 Dose: 25 mls/hr Magnesium Sulfate (Pharmacy To Dose - Magnesium Replacement) 1 dose .XX ASDIRECTED [facility] Pantoprazole Sodium (Protonix Iv) 40 mg IV ONETIME ONE Stop: 01/15/17 22:53 Last Admin: 01/16/17 07:22 Dose: Not Given Potassium Chloride (Pharmacy To Dose - Potassium Replacement) 1 dose .XX ASDIRECTED [facility] Potassium Chloride (Klor-Con M20) 20 meq PO Q3H [facility] Stop: 01/15/17 02:01 Last Admin: 01/15/17 05:15 Dose: Not Given Potassium Chloride (Klor-Con M20) 40 meq PO Q4H [facility] Stop: 01/15/17 17:01 Last Admin: 01/15/17 17:53 Dose: 40 meq Potassium Chloride (Potassium Chloride) 40 meq PO DAILY [facility] Last Admin: 01/17/17 08:05 Dose: 40 meq Quetiapine Fumarate (Seroquel) 50 mg PO ONETIME ONE Stop: 01/15/17 23:06 Quetiapine Fumarate (Seroquel) 25 mg PO BID [facility] Last Admin: 01/18/17 09:05 Dose: 25 mg Quetiapine Fumarate (Seroquel) 50 mg PO ONETIME ONE Stop: 01/14/17 23:51 Last Admin: 01/15/17 00:33 Dose: 50 mg Quetiapine Fumarate (Seroquel) 25 mg PO ONETIME ONE Stop: 01/17/17 14:40 Last Admin: 01/17/17 14:49 Dose: 25 mg Quetiapine Fumarate (Seroquel) 25 mg PO ONETIME ONE Stop: 01/18/17 09:46 Last Admin: 01/18/17 13:19 Dose: 25 mg Temazepam (Restoril) 15 mg PO BEDTIME PRN PRN Reason: Sleep Last Admin: 01/17/17 21:25 Dose: 15 mg - Exam Quality Assessment: DVT prophylaxis General: alert, oriented, cooperative, no acute distress HEENT: Pupils equal, Pupils reactive, EOMI Neck: supple, trachea midline Lungs: Normal respiratory effort Cardiovascular: Regular Rate, Regular Rhythm Abdomen: bowel sounds present, soft, no tenderness, no distension (Male) Exam: Deferred Back Exam: Normal Inspection Extremities: normal pulses Skin: warm Neurological: no new focal deficit, normal gait, normal speech Psy/Mental Status: alert, anxious (minimally) - Problem List & Annotations (1) Anxiety SNOMED Code(s): 33475269 Code(s): F41.9 - ANXIETY DISORDER, UNSPECIFIED Status: Acute Current Visit: Yes (2) Depression SNOMED Code(s): 02245070 Code(s): F32.9 - MAJOR DEPRESSIVE DISORDER, SINGLE EPISODE, UNSPECIFIED Status: Acute Current Visit: Yes (3) Alcohol withdrawal SNOMED Code(s): 846516092 Code(s): F10.239 - ALCOHOL DEPENDENCE WITH WITHDRAWAL, UNSPECIFIED Status: Acute Current Visit: Yes (4) Tobacco dependence SNOMED Code(s): 07059678 Code(s): F17.200 - NICOTINE DEPENDENCE, UNSPECIFIED, UNCOMPLICATED Status: Acute Current Visit: Yes - Problem List Review Problem List Initiated/Reviewed/Updated: Yes - My Orders Last 24 Hours: My Active Orders 01/18/17 15:00 chlordiazePOXIDE [Librium] 75 mg PO TID 01/18/17 19:35 Haloperidol Lactate [Haldol] 5 mg IVPUSH Q3H PRN 01/18/17 19:45 Nicotine [Habitrol] 7 mg TRDERM DAILY 01/18/17 19:46 Temazepam [Restoril] 30 mg PO BEDTIME PRN 01/18/17 21:00 QUEtiapine [SEROquel] 50 mg PO BID - Plan Plan:: Assessment: ETOH Detoxification with Withdrawal Symptoms, acutely withdrawing. 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
[2017-01-19] MEDS: Temazepam 15 MG Cap PO PRN (20:17)
--- NOTE | 2017-01-19 22:02 | CONS ---
CONSULTING PHYSICIAN: Rohan Ferguson LAC DATE OF CONSULTATION: 01/19/2017 Received a call from GRACE Higginbotham at approximately 10:00 a.m. on 01/19/2017 regarding the patient verbalizing that he no longer wanted to participate in voluntary treatment. A consideration for an involuntary commitment was requested. I reviewed the patient's medical status, withdrawal history, and imminent potential of continued alcohol use. I spoke with Dr. Talamantes and Cynthia EDWARDS regarding imminent danger of relapse with continued drinking to fatal levels exacerbating the patient's historic recurrence of alcohol related seizures. The patient's medical treatment team decided that a petition for involuntary commitment was necessary to address the serious and chronic nature of the patient's alcohol dependence. I executed a petition for involuntary commitment, delivered it to the hospital and had notarized. I called [facility] and [facility] in [place] to discuss commitment and availability to their respective facilities. GRACE Higginbotham and I spoke with the patient and the patient's girlfriend regarding the execution of the commitment and offered the patient a choice of substance abuse facilities. I received a call at 4:53 p.m. 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 All the necessary paperwork was completed, delivered to the hospital and executed. I left the hospital at approximately 5:45 p.m. on 01/19/2017. JON /[id number]
[2017-01-20] MEDS: cloNIDine 0.1 MG Tab PO PRN (01:18)
[2017-01-20] MEDS: LORazepam 1 MG Tab PO PRN ×3 (01:19→23:56)
[2017-01-20] MEDS: chlordiazePOXIDE 25 MG Cap PO SCH ×3 (08:19→20:15)
[2017-01-20] MEDS: Nicotine 21 MG/24 Hr Patch TRDERM SCH (08:20)
[2017-01-20] MEDS: Multivitamins,Therapeutic Tab PO SCH (08:20)
[2017-01-20] MEDS: Famotidine 20 MG Tab PO SCH ×2 (08:20→20:15)
[2017-01-20] MEDS: Nicotine 7 MG/24 Hr Patch TRDERM SCH (08:20)
[2017-01-20] MEDS: Thiamine 100 MG Tab PO SCH (08:20)
[2017-01-20] MEDS: Potassium Chloride 10% 20 MEQ/15 ML Soln 30 ML UD Cup PO SCH ×2 (08:20→20:15)
[2017-01-20] MEDS: QUEtiapine 25 MG Tab PO SCH ×2 (08:20→20:15)
[2017-01-20] MEDS: REMOVE NICOTINE TRDERM SCH (08:24)
--- NOTE | 2017-01-20 12:52 | PCM.PN ---
- General Info Functional Status: Reports: tolerating diet, ambulating, urinating - Review of Systems General: Reports: No Symptoms. Denies: Weakness HEENT: Reports: no symptoms Pulmonary: Reports: no symptoms Cardiovascular: Reports: No Symptoms Gastrointestinal: Reports: No symptoms Genitourinary: Reports: no symptoms Musculoskeletal: Reports: no symptoms Skin: Reports: no symptoms Neurological: Reports: Weakness (minimal) Psychiatric: Reports: no symptoms - Patient Data Vitals - most recent: Last Vital Signs Temp 36.4 C 01/20/17 08:00 Pulse 122 H 01/19/17 16:00 Resp 14 01/20/17 08:00 BP 108/86 01/20/17 08:00 Pulse Ox 98 01/20/17 08:00 Weight - most recent: 71.1 kg I&O - last 24 hours: Intake & Output 01/19/17 01/20/17 01/20/17 22:59 06:59 14:59 Intake Total 530 240 Output Total 250 Balance 280 240 Med Orders - Current: Current Medications Acetaminophen (Tylenol) 650 mg PO Q4H PRN PRN Reason: Pain (Mild 1-3)/fever Hydrocodone Bitart/Acetaminophen ([place] 325-5 Mg) 1 tab PO Q4H PRN PRN Reason: Pain (moderate 4-6) Albuterol/Ipratropium (Duoneb 3.0-0.5 Mg/3 Ml) 3 ml NEB Q4HRRT PRN PRN Reason: Shortness Of Breath/wheezing Bisacodyl (Dulcolax) 5 mg PO DAILY PRN PRN Reason: Constipation Chlordiazepoxide HCl (Librium) 75 mg PO TID [facility] Last Admin: 01/20/17 08:19 Dose: 75 mg Clonidine HCl (Catapres) 0.1 mg PO Q4H PRN PRN Reason: Agitation Last Admin: 01/20/17 01:18 Dose: 0.1 mg Docusate Sodium (Colace) 100 mg PO BID PRN PRN Reason: Constipation Famotidine (Pepcid) 20 mg PO Q12H [facility] Last Admin: 01/20/17 08:20 Dose: 20 mg Haloperidol Lactate (Haldol) 5 mg IVPUSH Q3H PRN PRN Reason: Withdrawal Symptoms Last Admin: 01/19/17 04:33 Dose: 5 mg Hydralazine HCl (Apresoline) 20 mg IVPUSH Q4H PRN PRN Reason: Hypertension Last Admin: 01/15/17 02:32 Dose: 20 mg Hydromorphone HCl (Dilaudid) 0.25 mg IVPUSH Q2H PRN PRN Reason: Pain (severe 7-10) Promethazine HCl 12.5 mg/ (Sodium Chloride) 50.5 mls @ 100 mls/hr IV Q6H PRN PRN Reason: Nausea/Vomiting Ibuprofen (Motrin) 600 mg PO Q6H PRN PRN Reason: Pain (moderate 4-6) Lorazepam (Ativan) 2 mg IVPUSH Q4H PRN PRN Reason: Seizures Last Admin: 01/17/17 10:50 Dose: 2 mg Lorazepam (Ativan) 0 mg IVPUSH Q4H PRN; Protocol PRN Reason: Withdrawal Symptoms Last Admin: 01/17/17 18:33 Dose: 2 mg Lorazepam (Ativan) 3 mg IVPUSH Q4H PRN PRN Reason: Anxiety Last Admin: 01/18/17 06:07 Dose: 3 mg Lorazepam (Ativan) 2 mg PO Q3H PRN PRN Reason: Anxiety Last Admin: 01/20/17 08:27 Dose: 2 mg Metoprolol Tartrate (Lopressor) 5 mg IVPUSH Q4H PRN PRN Reason: Tachycardia Last Admin: 01/15/17 03:19 Dose: 5 mg Miscellaneous Information (Remove Patch) 1 ea TRDERM DAILY [facility] Last Admin: 01/20/17 08:24 Dose: 1 ea Miscellaneous Information (Remove Patch) 1 ea TRDERM DAILY [facility] Last Admin: 01/20/17 08:24 Dose: 1 ea Multivitamins (Thera) 1 each PO DAILY [facility] Last Admin: 01/20/17 08:20 Dose: 1 each Nicotine (Habitrol) 21 mg TRDERM DAILY [facility] Last Admin: 01/20/17 08:20 Dose: 21 mg Nicotine (Habitrol) 7 mg TRDERM DAILY [facility] Last Admin: 01/20/17 08:20 Dose: 7 mg Ondansetron HCl (Zofran) 4 mg IV Q6H PRN PRN Reason: Nausea/Vomiting Polyethylene Glycol (Miralax) 17 gm PO DAILY PRN PRN Reason: Constipation Potassium Chloride (Potassium Chloride) 40 meq PO BID [facility] Last Admin: 01/20/17 08:20 Dose: 40 meq Quetiapine Fumarate (Seroquel) 50 mg PO BID [facility] Last Admin: 01/20/17 08:20 Dose: 50 mg Senna/Docusate Sodium (Senna Plus) 1 tab PO BID PRN PRN Reason: Constipation Temazepam (Restoril) 30 mg PO BEDTIME PRN PRN Reason: Sleep Last Admin: 01/19/17 20:17 Dose: 30 mg Thiamine HCl (Vitamin B-1) 100 mg PO DAILY [facility] Last Admin: 01/20/17 08:20 Dose: 100 mg Discontinued Medications Chlordiazepoxide HCl (Librium) 25 mg PO ONETIME ONE Stop: 01/14/17 22:03 Last Admin: 01/14/17 22:10 Dose: 25 mg Chlordiazepoxide HCl (Librium) 75 mg PO ONETIME ONE Stop: 01/14/17 23:07 Last Admin: 01/15/17 00:33 Dose: 75 mg Chlordiazepoxide HCl (Librium) 25 mg PO TID [facility] Last Admin: 01/17/17 08:03 Dose: 25 mg Chlordiazepoxide HCl (Librium) 50 mg PO TID [facility] Last Admin: 01/18/17 09:06 Dose: 50 mg Chlordiazepoxide HCl (Librium) 25 mg PO ONETIME ONE Stop: 01/17/17 10:31 Last Admin: 01/17/17 10:40 Dose: 25 mg Chlordiazepoxide HCl (Librium) 25 mg PO ONETIME ONE Stop: 01/18/17 12:31 Last Admin: 01/18/17 13:19 Dose: 25 mg Chlordiazepoxide HCl (Librium) 75 mg PO ONETIME ONE Stop: 01/18/17 19:35 Last Admin: 01/18/17 20:20 Dose: 75 mg Diphenhydramine HCl (Benadryl) 50 mg IVPUSH ONETIME ONE Stop: 01/14/17 23:52 Last Admin: 01/15/17 00:33 Dose: 50 mg Folic Acid (Folic Acid) 1 mg PO DAILY [facility] Stop: 01/17/17 09:01 Last Admin: 01/17/17 08:04 Dose: 1 mg Folic Acid (Folic Acid) 1 mg PO ONETIME ONE Stop: 01/14/17 23:53 Last Admin: 01/15/17 00:33 Dose: 1 mg Haloperidol Lactate (Haldol) 1 mg IVPUSH Q6H PRN PRN Reason: restlessness Last Admin: 01/17/17 10:18 Dose: 1 mg Haloperidol Lactate (Haldol) 1 mg IVPUSH Q6H [facility] Last Admin: 01/17/17 15:51 Dose: 1 mg Haloperidol Lactate (Haldol) 2 mg IVPUSH Q6H [facility] Last Admin: 01/18/17 15:10 Dose: 2 mg Dextrose/Sodium Chloride (Dextrose 5%-Normal Saline) 1,000 mls @ 125 mls/hr IV ASDIRECTED [facility] Last Admin: 01/16/17 12:50 Dose: 125 mls/hr Thiamine HCl 200 mg/ Sodium (Chloride) 52 mls @ 100 mls/hr IV ONETIME ONE Stop: 01/14/17 23:22 Last Admin: 01/15/17 00:39 Dose: 100 mls/hr Magnesium Sulfate 2 gm/ Premix 50 mls @ 25 mls/hr IV ONETIME ONE Stop: 01/16/17 14:09 Last Admin: 01/16/17 12:34 Dose: 25 mls/hr Magnesium Sulfate 2 gm/ Premix 50 mls @ 25 mls/hr IV ONETIME ONE Stop: 01/19/17 13:38 Last Admin: 01/19/17 11:51 Dose: 25 mls/hr Magnesium Sulfate (Pharmacy To Dose - Magnesium Replacement) 1 dose .XX ASDIRECTED [facility] Pantoprazole Sodium (Protonix Iv) 40 mg IV ONETIME ONE Stop: 01/15/17 22:53 Last Admin: 01/16/17 07:22 Dose: Not Given Potassium Chloride (Pharmacy To Dose - Potassium Replacement) 1 dose .XX ASDIRECTED [facility] Potassium Chloride (Klor-Con M20) 20 meq PO Q3H [facility] Stop: 01/15/17 02:01 Last Admin: 01/15/17 05:15 Dose: Not Given Potassium Chloride (Klor-Con M20) 40 meq PO Q4H [facility] Stop: 01/15/17 17:01 Last Admin: 01/15/17 17:53 Dose: 40 meq Potassium Chloride (Potassium Chloride) 40 meq PO DAILY [facility] Last Admin: 01/17/17 08:05 Dose: 40 meq Quetiapine Fumarate (Seroquel) 50 mg PO ONETIME ONE Stop: 01/15/17 23:06 Quetiapine Fumarate (Seroquel) 25 mg PO BID [facility] Last Admin: 01/18/17 09:05 Dose: 25 mg Quetiapine Fumarate (Seroquel) 50 mg PO ONETIME ONE Stop: 01/14/17 23:51 Last Admin: 01/15/17 00:33 Dose: 50 mg Quetiapine Fumarate (Seroquel) 25 mg PO ONETIME ONE Stop: 01/17/17 14:40 Last Admin: 01/17/17 14:49 Dose: 25 mg Quetiapine Fumarate (Seroquel) 25 mg PO ONETIME ONE Stop: 01/18/17 09:46 Last Admin: 01/18/17 13:19 Dose: 25 mg Temazepam (Restoril) 15 mg PO BEDTIME PRN PRN Reason: Sleep Last Admin: 01/17/17 21:25 Dose: 15 mg - Exam Quality Assessment: DVT prophylaxis General: alert, oriented, no acute distress HEENT: Pupils equal, Pupils reactive, EOMI Neck: supple, trachea midline, no JVD Lungs: Normal respiratory effort Cardiovascular: Regular Rate, Regular Rhythm Abdomen: bowel sounds present, soft, no tenderness, no distension (Male) Exam: Deferred Back Exam: Normal Inspection Extremities: normal pulses Skin: warm Neurological: no new focal deficit, normal gait, normal speech Psy/Mental Status: alert, labile mood - Problem List & Annotations (1) Anxiety SNOMED Code(s): 09736559 Code(s): F41.9 - ANXIETY DISORDER, UNSPECIFIED Status: Acute Current Visit: Yes (2) Depression SNOMED Code(s): 94149936 Code(s): F32.9 - MAJOR DEPRESSIVE DISORDER, SINGLE EPISODE, UNSPECIFIED Status: Acute Current Visit: Yes (3) Alcohol withdrawal SNOMED Code(s): 964283585 Code(s): F10.239 - ALCOHOL DEPENDENCE WITH WITHDRAWAL, UNSPECIFIED Status: Acute Current Visit: Yes (4) Tobacco dependence SNOMED Code(s): 14097118 Code(s): F17.200 - NICOTINE DEPENDENCE, UNSPECIFIED, UNCOMPLICATED Status: Acute Current Visit: Yes - Problem List Review Problem List Initiated/Reviewed/Updated: Yes - My Orders Last 24 Hours: My Active Orders 01/20/17 14:00 MAGNESIUM [CHEM] Routine - Plan Plan:: Assessment: ETOH Detoxification with Withdrawal Symptoms, acutely withdrawing. 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
[2017-01-20] MEDS ORDERED: Pneumococcal Polyvalent-23 Vaccine 0.5 ML SDV IM ONE (14:14)
[2017-01-20] MEDS: Temazepam 15 MG Cap PO PRN (20:15)
[2017-01-21] MEDS: LORazepam 1 MG Tab PO PRN (03:24)
[2017-01-21] MEDS: Famotidine 20 MG Tab PO SCH (08:01)
[2017-01-21] MEDS: Multivitamins,Therapeutic Tab PO SCH (08:01)
[2017-01-21] MEDS: chlordiazePOXIDE 25 MG Cap PO SCH (08:01)
[2017-01-21] MEDS: QUEtiapine 25 MG Tab PO SCH (08:02)
[2017-01-21] MEDS: Nicotine 7 MG/24 Hr Patch TRDERM SCH (08:02)
[2017-01-21] MEDS: Thiamine 100 MG Tab PO SCH (08:02)
[2017-01-21] MEDS: Nicotine 21 MG/24 Hr Patch TRDERM SCH (08:02)
[2017-01-21] MEDS: Potassium Chloride 10% 20 MEQ/15 ML Soln 30 ML UD Cup PO SCH (08:02)
[2017-01-21] MEDS: REMOVE NICOTINE TRDERM SCH (08:06)
[2017-01-21 09:23] VITALS: BP 121/83
[2017-01-21] MEDS ORDERED: Folic Acid 1 MG Tab PO SCH (10:00)
--- NOTE | 2017-01-21 10:18 | PCM.DCSUM1 ---
<Lianne Pedersen M - Last Filed: 01/22/17 11:22> Discharge Summary - Hospital Course Free Text/Narrative:: This is 36 year old white male who looks older than his stated age who comes to the emergency department for alcohol detoxification. He carries a history of chronic alcohol abuse. He has been drinking alcohol since the age of 12. He drinks over 24 packs a day and sometimes mixed it with a pint of whiskey on and off. His last drink was 3 hours ago. Patient has reached a point where and he can no longer function without alcohol in his system. He has been to rehabilitation over a year ago in [facility]. Unfortunately, last May he slipped up (was seen in [place]) but got back to rehabilitation. 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 He denies any illicit drug use. However he smokes 2-3 packs a day. His initial labs in emergency departments are still pending. Patient is being admitted for alcohol detoxification. He plans to go to [facility] for outpatient treatment. He was admitted to ICU, placed on CIWAA protocol with ativan, librium, seroquel and catapress for b/p. He has hx of alcohol withdrawl seizures on day 6 or 7. He was watched for 7 days without seizures. CIWAA scores stayed elevated for 5- 6 days. Rohan CONTRERAS was consulted, as well as Psychiatry for consult. He is discharged to [facility] in [place] today with [facility] office to transport. - Discharge Data Discharge Date: 01/21/17 (admit date 01/14/17) Discharge Disposition: DC/Tfer to In Rehab Fac 62 Condition: Good - Patient Summary/Data Consults: Consultations 01/14/17 23:12 Consult for Substance Abuse [CONS] Routine - Patient Instructions Diet: Usual Diet as Tolerated, Drink 8-10+ Glasses/Day, No Alcoholic Beverages Activity: As Tolerated Driving: Do Not Drive Showering/Bathing: May Shower Notify Provider of: Fever, Increased Pain, Nausea and/or Vomiting - Discharge Plan Prescriptions/Med Rec: Famotidine [Pepcid] 20 mg PO Q12H #60 tablet Folic Acid 1 mg PO DAILY #30 tablet Nicotine [Habitrol] 21 mg TRDERM DAILY #30 patch Potassium Chloride 40 meq PO BID #60 cup QUEtiapine [SEROquel] 25 mg PO BID #30 tablet Thiamine [Vitamin B-1] 100 mg PO DAILY #30 tablet chlordiazePOXIDE [Librium] 50 mg PO TID #24 cap Home Medications: Home Meds Famotidine [Pepcid] 20 mg PO Q12H #60 tablet 01/21/17 [Rx] Folic Acid 1 mg PO DAILY #30 tablet 01/21/17 [Rx] Nicotine [Habitrol] 21 mg TRDERM DAILY #30 patch 01/21/17 [Rx] Potassium Chloride 40 meq PO BID #60 cup 01/21/17 [Rx] QUEtiapine [SEROquel] 25 mg PO BID #30 tablet 01/21/17 [Rx] Thiamine [Vitamin B-1] 100 mg PO DAILY #30 tablet 01/21/17 [Rx] chlordiazePOXIDE [Librium] 50 mg PO TID #24 cap 01/21/17 [Rx] Patient Handouts: Smoking Cessation, Tips for Success, [id number], Alcoholic Liver Disease, [id number], Smoking Hazards, Alcohol Intoxication, [id number] , Stress and Stress Management Referrals: PCP,None [Primary Care Provider] - - Patient Data Vitals - Most Recent: Last Vital Signs Temp 98.2 F 01/21/17 09:00 Pulse 122 H 01/19/17 16:00 Resp 14 01/21/17 09:00 BP 121/83 01/21/17 09:00 Pulse Ox 95 01/21/17 09:00 Weight - Most Recent: 70.942 kg I&O - Last 24 hours: Intake & Output 01/20/17 01/21/17 01/21/17 22:59 06:59 14:59 Intake Total 1500 1800 Balance 1500 1800 Lab Results - Last 24 hrs: Laboratory Results - last 24 hr 01/20/17 Range/Units 14:10 Magnesium 1.8 (1.8-2.4) mg/dl Med Orders - Current: Current Medications Acetaminophen (Tylenol) 650 mg PO Q4H PRN PRN Reason: Pain (Mild 1-3)/fever Hydrocodone Bitart/Acetaminophen (Morris 325-5 Mg) 1 tab PO Q4H PRN PRN Reason: Pain (moderate 4-6) Albuterol/Ipratropium (Duoneb 3.0-0.5 Mg/3 Ml) 3 ml NEB Q4HRRT PRN PRN Reason: Shortness Of Breath/wheezing Bisacodyl (Dulcolax) 5 mg PO DAILY PRN PRN Reason: Constipation Chlordiazepoxide HCl (Librium) 75 mg PO TID [facility] Last Admin: 01/21/17 08:01 Dose: 75 mg Clonidine HCl (Catapres) 0.1 mg PO Q4H PRN PRN Reason: Agitation Last Admin: 01/20/17 01:18 Dose: 0.1 mg Docusate Sodium (Colace) 100 mg PO BID PRN PRN Reason: Constipation Famotidine (Pepcid) 20 mg PO Q12H CLYDE Last Admin: 01/21/17 08:01 Dose: 20 mg Folic Acid (Folic Acid) 1 mg PO DAILY CLYDE Haloperidol Lactate (Haldol) 5 mg IVPUSH Q3H PRN PRN Reason: Withdrawal Symptoms Last Admin: 01/19/17 04:33 Dose: 5 mg Hydralazine HCl (Apresoline) 20 mg IVPUSH Q4H PRN PRN Reason: Hypertension Last Admin: 01/15/17 02:32 Dose: 20 mg Hydromorphone HCl (Dilaudid) 0.25 mg IVPUSH Q2H PRN PRN Reason: Pain (severe 7-10) Promethazine HCl 12.5 mg/ (Sodium Chloride) 50.5 mls @ 100 mls/hr IV Q6H PRN PRN Reason: Nausea/Vomiting Ibuprofen (Motrin) 600 mg PO Q6H PRN PRN Reason: Pain (moderate 4-6) Lorazepam (Ativan) 2 mg IVPUSH Q4H PRN PRN Reason: Seizures Last Admin: 01/17/17 10:50 Dose: 2 mg Lorazepam (Ativan) 0 mg IVPUSH Q4H PRN; Protocol PRN Reason: Withdrawal Symptoms Last Admin: 01/17/17 18:33 Dose: 2 mg Lorazepam (Ativan) 3 mg IVPUSH Q4H PRN PRN Reason: Anxiety Last Admin: 01/18/17 06:07 Dose: 3 mg Lorazepam (Ativan) 2 mg PO Q3H PRN PRN Reason: Anxiety Last Admin: 01/21/17 03:24 Dose: 2 mg Metoprolol Tartrate (Lopressor) 5 mg IVPUSH Q4H PRN PRN Reason: Tachycardia Last Admin: 01/15/17 03:19 Dose: 5 mg Miscellaneous Information (Remove Patch) 1 ea TRDERM DAILY [facility] Last Admin: 01/21/17 08:06 Dose: 1 ea Miscellaneous Information (Remove Patch) 1 ea TRDERM DAILY [facility] Last Admin: 01/21/17 08:06 Dose: 1 ea Multivitamins (Thera) 1 each PO DAILY [facility] Last Admin: 01/21/17 08:01 Dose: 1 each Nicotine (Habitrol) 21 mg TRDERM DAILY [facility] Last Admin: 01/21/17 08:02 Dose: 21 mg Nicotine (Habitrol) 7 mg TRDERM DAILY [facility] Last Admin: 01/21/17 08:02 Dose: 7 mg Ondansetron HCl (Zofran) 4 mg IV Q6H PRN PRN Reason: Nausea/Vomiting Polyethylene Glycol (Miralax) 17 gm PO DAILY PRN PRN Reason: Constipation Potassium Chloride (Potassium Chloride) 40 meq PO BID [facility] Last Admin: 01/21/17 08:02 Dose: 40 meq Quetiapine Fumarate (Seroquel) 50 mg PO BID [facility] Last Admin: 01/21/17 08:02 Dose: 50 mg Senna/Docusate Sodium (Senna Plus) 1 tab PO BID PRN PRN Reason: Constipation Temazepam (Restoril) 30 mg PO BEDTIME PRN PRN Reason: Sleep Last Admin: 01/20/17 20:15 Dose: 30 mg Thiamine HCl (Vitamin B-1) 100 mg PO DAILY [facility] Last Admin: 01/21/17 08:02 Dose: 100 mg Discontinued Medications Chlordiazepoxide HCl (Librium) 25 mg PO ONETIME ONE Stop: 01/14/17 22:03 Last Admin: 01/14/17 22:10 Dose: 25 mg Chlordiazepoxide HCl (Librium) 75 mg PO ONETIME ONE Stop: 01/14/17 23:07 Last Admin: 01/15/17 00:33 Dose: 75 mg Chlordiazepoxide HCl (Librium) 25 mg PO TID [facility] Last Admin: 01/17/17 08:03 Dose: 25 mg Chlordiazepoxide HCl (Librium) 50 mg PO TID [facility] Last Admin: 01/18/17 09:06 Dose: 50 mg Chlordiazepoxide HCl (Librium) 25 mg PO ONETIME ONE Stop: 01/17/17 10:31 Last Admin: 01/17/17 10:40 Dose: 25 mg Chlordiazepoxide HCl (Librium) 25 mg PO ONETIME ONE Stop: 01/18/17 12:31 Last Admin: 01/18/17 13:19 Dose: 25 mg Chlordiazepoxide HCl (Librium) 75 mg PO ONETIME ONE Stop: 01/18/17 19:35 Last Admin: 01/18/17 20:20 Dose: 75 mg Diphenhydramine HCl (Benadryl) 50 mg IVPUSH ONETIME ONE Stop: 01/14/17 23:52 Last Admin: 01/15/17 00:33 Dose: 50 mg Folic Acid (Folic Acid) 1 mg PO DAILY [facility] Stop: 01/17/17 09:01 Last Admin: 01/17/17 08:04 Dose: 1 mg Folic Acid (Folic Acid) 1 mg PO ONETIME ONE Stop: 01/14/17 23:53 Last Admin: 01/15/17 00:33 Dose: 1 mg Haloperidol Lactate (Haldol) 1 mg IVPUSH Q6H PRN PRN Reason: restlessness Last Admin: 01/17/17 10:18 Dose: 1 mg Haloperidol Lactate (Haldol) 1 mg IVPUSH Q6H [facility] Last Admin: 01/17/17 15:51 Dose: 1 mg Haloperidol Lactate (Haldol) 2 mg IVPUSH Q6H [facility] Last Admin: 01/18/17 15:10 Dose: 2 mg Dextrose/Sodium Chloride (Dextrose 5%-Normal Saline) 1,000 mls @ 125 mls/hr IV ASDIRECTED [facility] Last Admin: 01/16/17 12:50 Dose: 125 mls/hr Thiamine HCl 200 mg/ Sodium (Chloride) 52 mls @ 100 mls/hr IV ONETIME ONE Stop: 01/14/17 23:22 Last Admin: 01/15/17 00:39 Dose: 100 mls/hr Magnesium Sulfate 2 gm/ Premix 50 mls @ 25 mls/hr IV ONETIME ONE Stop: 01/16/17 14:09 Last Admin: 01/16/17 12:34 Dose: 25 mls/hr Magnesium Sulfate 2 gm/ Premix 50 mls @ 25 mls/hr IV ONETIME ONE Stop: 01/19/17 13:38 Last Admin: 01/19/17 11:51 Dose: 25 mls/hr Magnesium Sulfate (Pharmacy To Dose - Magnesium Replacement) 1 dose .XX ASDIRECTED [facility] Pantoprazole Sodium (Protonix Iv) 40 mg IV ONETIME ONE Stop: 01/15/17 22:53 Last Admin: 01/16/17 07:22 Dose: Not Given Pneumococcal Polyvalent Vaccine (Pneumovax 23) 0.5 ml IM .ONCE ONE Stop: 01/20/17 14:15 Potassium Chloride (Pharmacy To Dose - Potassium Replacement) 1 dose .XX ASDIRECTED [facility] Potassium Chloride (Klor-Con M20) 20 meq PO Q3H CLYDE Stop: 01/15/17 02:01 Last Admin: 01/15/17 05:15 Dose: Not Given Potassium Chloride (Klor-Con M20) 40 meq PO Q4H CLDYE Stop: 01/15/17 17:01 Last Admin: 01/15/17 17:53 Dose: 40 meq Potassium Chloride (Potassium Chloride) 40 meq PO DAILY [facility] Last Admin: 01/17/17 08:05 Dose: 40 meq Quetiapine Fumarate (Seroquel) 50 mg PO ONETIME ONE Stop: 01/15/17 23:06 Quetiapine Fumarate (Seroquel) 25 mg PO BID [facility] Last Admin: 01/18/17 09:05 Dose: 25 mg Quetiapine Fumarate (Seroquel) 50 mg PO ONETIME ONE Stop: 01/14/17 23:51 Last Admin: 01/15/17 00:33 Dose: 50 mg Quetiapine Fumarate (Seroquel) 25 mg PO ONETIME ONE Stop: 01/17/17 14:40 Last Admin: 01/17/17 14:49 Dose: 25 mg Quetiapine Fumarate (Seroquel) 25 mg PO ONETIME ONE Stop: 01/18/17 09:46 Last Admin: 01/18/17 13:19 Dose: 25 mg Temazepam (Restoril) 15 mg PO BEDTIME PRN PRN Reason: Sleep Last Admin: 01/17/17 21:25 Dose: 15 mg *Q Meaningful Use (DIS) - VTE *Q VTE Criteria *Q: - Stroke *Q Stroke Criteria *Q: - AMI *Q AMI Criteria *Q: <Izabella Talamantes M - Last Filed: 02/24/17 17:14> Discharge Summary - Hospital Course Free Text/Narrative:: See above, transferred ordered for inpatient rehab treatment. - Discharge Diagnosis/Problem(s) (1) Anxiety SNOMED Code(s): 86359737 ICD Code: F41.9 - ANXIETY DISORDER, UNSPECIFIED Status: Acute (2) Depression SNOMED Code(s): 38789384 ICD Code: F32.9 - MAJOR DEPRESSIVE DISORDER, SINGLE EPISODE, UNSPECIFIED Status: Acute (3) Alcohol withdrawal SNOMED Code(s): 316724231 ICD Code: F10.239 - ALCOHOL DEPENDENCE WITH WITHDRAWAL, UNSPECIFIED Status : Acute (4) Tobacco dependence SNOMED Code(s): 90577288 ICD Code: F17.200 - NICOTINE DEPENDENCE, UNSPECIFIED, UNCOMPLICATED Status : Acute - Patient Summary/Data Consults: Consultations 01/14/17 23:12 Consult for Substance Abuse [CONS] Routine - Patient Data Vitals - Most Recent: Last Vital Signs Temp 36.8 C 01/21/17 09:00 Pulse 122 H 01/19/17 16:00 Resp 14 01/21/17 09:00 BP 121/83 01/21/17 09:00 Pulse Ox 95 01/21/17 09:00 I&O - Last 24 hours: Intake & Output 01/21/17 01/21/17 01/21/17 06:59 14:59 22:59 Intake Total 1800 360 Balance 1800 360 Lab Results - Last 24 hrs: Laboratory Results - last 24 hr 01/21/17 01/21/17 Range/Units 09:54 09:54 WBC 8.11 (4.23-9.07) K/mm3 RBC 4.52 L (4.63-6.08) M/mm3 Hgb 14.5 (13.7-17.5) gm/L Hct 43.3 (40.1-51.0) % MCV 95.8 H (79.0-92.2) fl MCH 32.1 (25.7-32.2) pg MCHC 33.5 (32.2-35.5) g/dl RDW Std Deviation 46.4 H (35.1-43.9) fL Plt Count 178 (163-337) K/mm3 MPV 9.9 (9.4-12.3) fl Neut % (Auto) 67.9 (34.0-67.9) % Lymph % (Auto) 12.7 L (21.8-53.1) % [place] % (Auto) 15.7 H (5.3-12.2) % Eos % (Auto) 2.8 (0.8-7.0) Baso % (Auto) 0.5 (0.1-1.2) % Neut # (Auto) 5.51 H (1.78-5.38) K/mm3 Lymph # (Auto) 1.03 L (1.32-3.57) K/mm3 [place] # (Auto) 1.27 H (0.30-0.82) K/mm3 Eos # (Auto) 0.23 (0.04-0.54) K/mm3 Baso # (Auto) 0.04 (0.01-0.08) K/mm3 Manual Slide Review Normal smear Sodium 140 (136-145) mEq/L Potassium 4.2 (3.5-5.1) mEq/L Chloride 105 (98-107) mEq/L Carbon Dioxide 27 (21-32) mEq/L Anion Gap 12.2 (5-15) BUN 11 (7-18) mg/dL Creatinine 0.9 (0.7-1.3) mg/dL Est Cr Clr Drug Dosing 105.07 mL/min Estimated GFR (MDRD) > 60 (>60) mL/min BUN/Creatinine Ratio 12.2 L (14-18) Glucose 129 H (74-106) mg/dL Calcium 9.2 (8.5-10.1) mg/dL Magnesium 1.7 L (1.8-2.4) mg/dl Total Bilirubin 0.2 (0.2-1.0) mg/dL AST 44 H (15-37) U/L ALT 85 H (16-63) U/L Alkaline Phosphatase 103 (46-116) U/L Total Protein 7.0 (6.4-8.2) g/dl Albumin 3.1 L (3.4-5.0) g/dl Globulin 3.9 gm/dL Albumin/Globulin Ratio 0.8 L (1-2) Med Orders - Current: Current Medications Discontinued Medications Acetaminophen (Tylenol) 650 mg PO Q4H PRN PRN Reason: Pain (Mild 1-3)/fever Hydrocodone Bitart/Acetaminophen (Morris 325-5 Mg) 1 tab PO Q4H PRN PRN Reason: Pain (moderate 4-6) Albuterol/Ipratropium (Duoneb 3.0-0.5 Mg/3 Ml) 3 ml NEB Q4HRRT PRN PRN Reason: Shortness Of Breath/wheezing Bisacodyl (Dulcolax) 5 mg PO DAILY PRN PRN Reason: Constipation Chlordiazepoxide HCl (Librium) 25 mg PO ONETIME ONE Stop: 01/14/17 22:03 Last Admin: 01/14/17 22:10 Dose: 25 mg Chlordiazepoxide HCl (Librium) 75 mg PO ONETIME ONE Stop: 01/14/17 23:07 Last Admin: 01/15/17 00:33 Dose: 75 mg Chlordiazepoxide HCl (Librium) 25 mg PO TID [facility] Last Admin: 01/17/17 08:03 Dose: 25 mg Chlordiazepoxide HCl (Librium) 50 mg PO TID [facility] Last Admin: 01/18/17 09:06 Dose: 50 mg Chlordiazepoxide HCl (Librium) 25 mg PO ONETIME ONE Stop: 01/17/17 10:31 Last Admin: 01/17/17 10:40 Dose: 25 mg Chlordiazepoxide HCl (Librium) 75 mg PO TID [facility] Last Admin: 01/21/17 08:01 Dose: 75 mg Chlordiazepoxide HCl (Librium) 25 mg PO ONETIME ONE Stop: 01/18/17 12:31 Last Admin: 01/18/17 13:19 Dose: 25 mg Chlordiazepoxide HCl (Librium) 75 mg PO ONETIME ONE Stop: 01/18/17 19:35 Last Admin: 01/18/17 20:20 Dose: 75 mg Clonidine HCl (Catapres) 0.1 mg PO Q4H PRN PRN Reason: Agitation Last Admin: 01/20/17 01:18 Dose: 0.1 mg Diphenhydramine HCl (Benadryl) 50 mg IVPUSH ONETIME ONE Stop: 01/14/17 23:52 Last Admin: 01/15/17 00:33 Dose: 50 mg Docusate Sodium (Colace) 100 mg PO BID PRN PRN Reason: Constipation Famotidine (Pepcid) 20 mg PO Q12H [facility] Last Admin: 01/21/17 08:01 Dose: 20 mg Folic Acid (Folic Acid) 1 mg PO DAILY [facility] Stop: 01/17/17 09:01 Last Admin: 01/17/17 08:04 Dose: 1 mg Folic Acid (Folic Acid) 1 mg PO ONETIME ONE Stop: 01/14/17 23:53 Last Admin: 01/15/17 00:33 Dose: 1 mg Folic Acid (Folic Acid) 1 mg PO DAILY [facility] Haloperidol Lactate (Haldol) 1 mg IVPUSH Q6H PRN PRN Reason: restlessness Last Admin: 01/17/17 10:18 Dose: 1 mg Haloperidol Lactate (Haldol) 1 mg IVPUSH Q6H [facility] Last Admin: 01/17/17 15:51 Dose: 1 mg Haloperidol Lactate (Haldol) 2 mg IVPUSH Q6H [facility] Last Admin: 01/18/17 15:10 Dose: 2 mg Haloperidol Lactate (Haldol) 5 mg IVPUSH Q3H PRN PRN Reason: Withdrawal Symptoms Last Admin: 01/19/17 04:33 Dose: 5 mg Hydralazine HCl (Apresoline) 20 mg IVPUSH Q4H PRN PRN Reason: Hypertension Last Admin: 01/15/17 02:32 Dose: 20 mg Hydromorphone HCl (Dilaudid) 0.25 mg IVPUSH Q2H PRN PRN Reason: Pain (severe 7-10) Dextrose/Sodium Chloride (Dextrose 5%-Normal Saline) 1,000 mls @ 125 mls/hr IV ASDIRECTED [facility] Last Admin: 01/16/17 12:50 Dose: 125 mls/hr Promethazine HCl 12.5 mg/ (Sodium Chloride) 50.5 mls @ 100 mls/hr IV Q6H PRN PRN Reason: Nausea/Vomiting Thiamine HCl 200 mg/ Sodium (Chloride) 52 mls @ 100 mls/hr IV ONETIME ONE Stop: 01/14/17 23:22 Last Admin: 01/15/17 00:39 Dose: 100 mls/hr Magnesium Sulfate 2 gm/ Premix 50 mls @ 25 mls/hr IV ONETIME ONE Stop: 01/16/17 14:09 Last Admin: 01/16/17 12:34 Dose: 25 mls/hr Magnesium Sulfate 2 gm/ Premix 50 mls @ 25 mls/hr IV ONETIME ONE Stop: 01/19/17 13:38 Last Admin: 01/19/17 11:51 Dose: 25 mls/hr Ibuprofen (Motrin) 600 mg PO Q6H PRN PRN Reason: Pain (moderate 4-6) Lorazepam (Ativan) 2 mg IVPUSH Q4H PRN PRN Reason: Seizures Last Admin: 01/17/17 10:50 Dose: 2 mg Lorazepam (Ativan) 0 mg IVPUSH Q4H PRN; Protocol PRN Reason: Withdrawal Symptoms Last Admin: 01/17/17 18:33 Dose: 2 mg Lorazepam (Ativan) 3 mg IVPUSH Q4H PRN PRN Reason: Anxiety Last Admin: 01/18/17 06:07 Dose: 3 mg Lorazepam (Ativan) 2 mg PO Q3H PRN PRN Reason: Anxiety Last Admin: 01/21/17 03:24 Dose: 2 mg Magnesium Sulfate (Pharmacy To Dose - Magnesium Replacement) 1 dose .XX ASDIRECTED [facility] Metoprolol Tartrate (Lopressor) 5 mg IVPUSH Q4H PRN PRN Reason: Tachycardia Last Admin: 01/15/17 03:19 Dose: 5 mg Miscellaneous Information (Remove Patch) 1 ea TRDERM DAILY [facility] Last Admin: 01/21/17 08:06 Dose: 1 ea Miscellaneous Information (Remove Patch) 1 ea TRDERM DAILY [facility] Last Admin: 01/21/17 08:06 Dose: 1 ea Multivitamins (Thera) 1 each PO DAILY [facility] Last Admin: 01/21/17 08:01 Dose: 1 each Nicotine (Habitrol) 21 mg TRDERM DAILY [facility] Last Admin: 01/21/17 08:02 Dose: 21 mg Nicotine (Habitrol) 7 mg TRDERM DAILY [facility] Last Admin: 01/21/17 08:02 Dose: 7 mg Ondansetron HCl (Zofran) 4 mg IV Q6H PRN PRN Reason: Nausea/Vomiting Pantoprazole Sodium (Protonix Iv) 40 mg IV ONETIME ONE Stop: 01/15/17 22:53 Last Admin: 01/16/17 07:22 Dose: Not Given Pneumococcal Polyvalent Vaccine (Pneumovax 23) 0.5 ml IM .ONCE ONE Stop: 01/20/17 14:15 Polyethylene Glycol (Miralax) 17 gm PO DAILY PRN PRN Reason: Constipation Potassium Chloride (Pharmacy To Dose - Potassium Replacement) 1 dose .XX ASDIRECTED [facility] Potassium Chloride (Klor-Con M20) 20 meq PO Q3H [facility] Stop: 01/15/17 02:01 Last Admin: 01/15/17 05:15 Dose: Not Given Potassium Chloride (Klor-Con M20) 40 meq PO Q4H [facility] Stop: 01/15/17 17:01 Last Admin: 01/15/17 17:53 Dose: 40 meq Potassium Chloride (Potassium Chloride) 40 meq PO DAILY [facility] Last Admin: 01/17/17 08:05 Dose: 40 meq Potassium Chloride (Potassium Chloride) 40 meq PO BID [facility] Last Admin: 01/21/17 08:02 Dose: 40 meq Quetiapine Fumarate (Seroquel) 50 mg PO ONETIME ONE Stop: 01/15/17 23:06 Quetiapine Fumarate (Seroquel) 25 mg PO BID [facility] Last Admin: 01/18/17 09:05 Dose: 25 mg Quetiapine Fumarate (Seroquel) 50 mg PO ONETIME ONE Stop: 01/14/17 23:51 Last Admin: 01/15/17 00:33 Dose: 50 mg Quetiapine Fumarate (Seroquel) 25 mg PO ONETIME ONE Stop: 01/17/17 14:40 Last Admin: 01/17/17 14:49 Dose: 25 mg Quetiapine Fumarate (Seroquel) 50 mg PO BID [facility] Last Admin: 01/21/17 08:02 Dose: 50 mg Quetiapine Fumarate (Seroquel) 25 mg PO ONETIME ONE Stop: 01/18/17 09:46 Last Admin: 01/18/17 13:19 Dose: 25 mg Senna/Docusate Sodium (Senna Plus) 1 tab PO BID PRN PRN Reason: Constipation Temazepam (Restoril) 15 mg PO BEDTIME PRN PRN Reason: Sleep Last Admin: 01/17/17 21:25 Dose: 15 mg Temazepam (Restoril) 30 mg PO BEDTIME PRN PRN Reason: Sleep Last Admin: 01/20/17 20:15 Dose: 30 mg Thiamine HCl (Vitamin B-1) 100 mg PO DAILY [facility] Last Admin: 01/21/17 08:02 Dose: 100 mg *Q Meaningful Use (DIS) - VTE *Q VTE Criteria *Q: - Stroke *Q Stroke Criteria *Q: - AMI *Q AMI Criteria *Q:
== END 2017-01-21 11:00 | DRG 897 ==
LOC: JD.ED 20:16 → JD.ICU 23:05 → MERGE 23:05
PROVIDERS: ADMIT Internal Medicine; ATTEND Internal Medicine
PROC: HZ2ZZZZ Detoxification Services for Substance Abuse Treatment (ICD-10-PCS; principal; 2017-01-14)
DX: F10.232 Alcohol dependence with withdrawal with perceptual disturbance (principal); F15.20 Other stimulant dependence, uncomplicated; F10.229 Alcohol dependence with intoxication, unspecified; F17.200 Nicotine dependence, unspecified, uncomplicated; F29 Unspecified psychosis not due to a substance or known physiological condition; Y90.2 Blood alcohol level of 40-59 mg/100 ml
CPT/HCPCS: 36415; 74020; 74020-26; 80048; 80053; 80076; 83690; 83735; 85025; 85027; 97116-GP; 97162-GP; 97165-GO; 99223; 99231; 99232; 99238; 99284; 99285; A9270-GY; C9113; G0480; J0360; J1200; J1630; J2060; J3411; J3475; J3490; J7030; J7042

== ENCOUNTER 2017-12-13 07:51 | Emergency (ER) | payer MEDICAID ==
[2017-12-13 08:07] VITALS: BP 117/84
[2017-12-13] MEDS ORDERED: Sodium Chloride 0.9% 10 ML Syringe FLUSH PRN (08:38)
[2017-12-13] MEDS ORDERED: Lactated Ringers 1,000 ML IV SCH (08:45)
--- NOTE | 2017-12-13 08:55 | EDM.PDOCBH ---
ED HPI GENERAL MEDICAL PROBLEM - General Chief Complaint: Drug or Alcohol Abuse Stated Complaint: MEDICAL CLEARANCE Time Seen by Provider: 12/13/17 08:25 Source of Information: Reports: Patient, Police History Limitations: Reports: Intoxication - History of Present Illness INITIAL COMMENTS - FREE TEXT/NARRATIVE: The patient was brought in by the [facility]. He admits to drinking and his last drink was about 5 hours ago. He is here for medical clearance. The patient has been abusing alcohol for years. He was detoxed last year and went to rehab but now he is drinking again. He drinks beer and some liquor. He says he withdraws hard from alcohol. He is on librium by his psychiatrist. He has a history of psorisis, liver problems and troubles with his kidneys. Onset: Gradual Duration: Hour(s): Severity: Moderate Improves with: Reports: None Worsens with: Reports: None Associated Symptoms: Reports: No Other Symptoms - Related Data Allergies Allergy/AdvReac Type Severity Reaction Status Date / Time No Known Allergies Allergy Verified 12/13/17 08:01 Home Meds: Home Meds Famotidine [Pepcid] 20 mg PO Q12H #60 tablet 01/21/17 [Rx] Folic Acid 1 mg PO DAILY #30 tablet 01/21/17 [Rx] Nicotine [Habitrol] 21 mg TRDERM DAILY #30 patch 01/21/17 [Rx] Thiamine [Vitamin B-1] 100 mg PO DAILY #30 tablet 01/21/17 [Rx] chlordiazePOXIDE [Librium] 50 mg PO TID #24 cap 01/21/17 [Rx] Ondansetron [Zofran ODT] 4 mg PO Q6H PRN #20 tab.dis 12/13/17 [Rx] QUEtiapine [SEROquel] 12.5 mg PO DAILY 12/13/17 [History] Thiamine [Vitamin B-1] 100 mg PO BEDTIME #30 tab 12/13/17 [Rx] Past Medical History HEENT History: Reports: None Cardiovascular History: Reports: Hypertension Gastrointestinal History: Reports: GERD Musculoskeletal History: Reports: Fracture Neurological History: Reports: Concussion, Seizure Other Neuro History: 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 Psychiatric History: Reports: Addiction, Depression Dermatologic History: Reports: Psoriasis - Infectious Disease History Infectious Disease History: Reports: Chicken Pox - Past Surgical History HEENT Surgical History: Reports: None GI Surgical History: Reports: None Musculoskeletal Surgical History: Reports: Other (See Below), ORIF Social & Family History - Family History Family Medical History: Noncontributory - Tobacco Use Smoking Status *Q: Current Every Day Smoker Years of Tobacco use: 27 Packs/Tins Daily: 2.5 Used Tobacco, but Quit: No - Caffeine Use Caffeine Use: Reports: Coffee - Alcohol Use Days Per Week of Alcohol Use: 7 Number of Drinks Per Day: 7 Total Drinks Per Week: 49 - Recreational Drug Use Recreational Drug Use: Yes Drug Use in Last 12 Months: No ED ROS GENERAL - Review of Systems Review Of Systems: See Below Constitutional: Reports: No Symptoms HEENT: Reports: No Symptoms Respiratory: Reports: No Symptoms Cardiovascular: Reports: No Symptoms Endocrine: Reports: No Symptoms GI/Abdominal: Reports: No Symptoms : Reports: No Symptoms Musculoskeletal: Reports: No Symptoms ED EXAM, BEHAVIORAL HEALTH - Physical Exam Exam: See Below Exam Limited By: Intoxication General Appearance: Alert, No Apparent Distress Ears: Normal External Exam Nose: Normal Inspection Head: Atraumatic, Normocephalic Neck: Normal Inspection Respiratory/Chest: No Respiratory Distress, Lungs Clear, Normal Breath Sounds Cardiovascular: Regular Rate, Rhythm, No Edema, No Murmur GI/Abdominal: Soft, Non-Tender, No Organomegaly, No Mass Back Exam: Normal Inspection Extremities: Normal Inspection Neurological: Alert, No Motor/Sensory Deficits, Oriented x 3, Other (slurring his words) COURSE, BEHAVIORAL HEALTH COMP - Course Vital Signs: Last Vital Signs Temp 98.0 F 12/13/17 08:04 Pulse 95 12/13/17 08:04 Resp 18 12/13/17 08:04 BP 117/84 12/13/17 08:04 Pulse Ox 94 L 12/13/17 08:04 Orders, Labs, Meds: Active Orders 24 hr Category Date Time Status Cardiac Monitoring [RC] . DIRECTED Care 12/13/17 08:38 Active Peripheral IV Care [RC] . DIRECTED Care 12/13/17 08:39 Active DRUG SCREEN, URINE [URCHEM] Stat Lab 12/13/17 08:38 Ordered Lactated Ringers [Ringers, Lactated] 1,000 ml Med 12/13/17 08:45 Active IV .BOLUS Sodium Chloride 0.9% [Saline Flush] Med 12/13/17 08:38 Active 10 ml FLUSH ASDIRECTED PRN Peripheral IV Insertion Adult [OM.PC] Stat Oth 12/13/17 08:38 Ordered Medication Orders Lactated Ringer's (Ringers, Lactated) 1,000 mls @ 500 mls/hr IV .BOLUS CLYDE Last Admin: 12/13/17 08:58 Dose: 500 mls/hr Sodium Chloride (Saline Flush) 10 ml FLUSH ASDIRECTED PRN PRN Reason: Keep Vein Open Last Admin: 12/13/17 08:52 Dose: 10 ml Laboratory Tests 12/13/17 12/13/17 Range/Units 08:55 08:55 WBC 8.15 (4.23-9.07) K/mm3 RBC 4.56 L (4.63-6.08) M/mm3 Hgb 15.1 (13.7-17.5) gm/L Hct 43.3 (40.1-51.0) % MCV 95.0 H (79.0-92.2) fl MCH 33.1 H (25.7-32.2) pg MCHC 34.9 (32.2-35.5) g/dl RDW Std Deviation 45.5 H (35.1-43.9) fL Plt Count 333 (163-337) K/mm3 MPV 8.6 L (9.4-12.3) fl Neut % (Auto) 68.3 H (34.0-67.9) % Lymph % (Auto) 18.0 L (21.8-53.1) % [place] % (Auto) 10.6 (5.3-12.2) % Eos % (Auto) 2.3 (0.8-7.0) Baso % (Auto) 0.6 (0.1-1.2) % Neut # (Auto) 5.56 H (1.78-5.38) K/mm3 Lymph # (Auto) 1.47 (1.32-3.57) K/mm3 [place] # (Auto) 0.86 H (0.30-0.82) K/mm3 Eos # (Auto) 0.19 (0.04-0.54) K/mm3 Baso # (Auto) 0.05 (0.01-0.08) K/mm3 Sodium 145 (136-145) mEq/L Potassium 3.6 (3.5-5.1) mEq/L Chloride 109 H (98-107) mEq/L Carbon Dioxide 25 (21-32) mEq/L Anion Gap 14.6 (5-15) BUN 7 (7-18) mg/dL Creatinine 0.9 (0.7-1.3) mg/dL Est Cr Clr Drug Dosing 105.07 mL/min Estimated GFR (MDRD) > 60 (>60) mL/min BUN/Creatinine Ratio 7.8 L (14-18) Glucose 93 (74-106) mg/dL Calcium 8.4 L (8.5-10.1) mg/dL Total Bilirubin 0.2 (0.2-1.0) mg/dL AST 126 H (15-37) U/L ALT 92 H (16-63) U/L Alkaline Phosphatase 84 (46-116) U/L Total Protein 7.6 (6.4-8.2) g/dl Albumin 3.6 (3.4-5.0) g/dl Globulin 4.0 gm/dL Albumin/Globulin Ratio 0.9 L (1-2) Ethyl Alcohol 0.30 (0.00) gm% Medications Generic Name Dose Route Start Last Admin Trade Name Freq PRN Reason Stop Dose Admin Lactated Ringer's 1,000 mls @ 500 mls/hr 12/13/17 08:45 12/13/17 08:58 Ringers, Lactated IV 500 mls/hr .BOLUS CLYDE Administration Sodium Chloride 10 ml 12/13/17 08:38 12/13/17 08:52 Saline Flush FLUSH 10 ml ASDIRECTED PRN Administration Keep Vein Open Discontinued Medications Generic Name Dose Route Start Last Admin Trade Name Freq PRN Reason Stop Dose Admin Thiamine HCl 100 mg/ Sodium 101 mls @ 202 mls/hr 12/13/17 10:20 Chloride IV 12/13/17 10:21 ONETIME ONE Re-Assessment/Re-Exam: I ordered an IV LR 1L bolus and labs. His CBC looks good. His AST was 126. His ALT was elevated at 92. His ETOH was elevated at 0.3. He has been resting comfortably. I talked with Ольга the lead nurse at the half-way and she remembers Martin and about a year ago they had him and he had a tough time coming off the alcohol. They had to give him 2mg of ativan every 4 hours. She is willing to start the process in the half-way. I will also give him a dose of thiamine. The is anticipating he will not get out for days given what he is arrested for. I will also give him some zofran. Departure - Departure Time of Disposition: 10:30 Disposition: Home, Self-Care 01 Condition: Good Clinical Impression: Alcohol abuse Alcohol intoxication Qualifiers: Complication of substance-induced condition: uncomplicated Qualified Code(s): F10.920 - Alcohol use, unspecified with intoxication, uncomplicated - Discharge Information Prescriptions: Ondansetron [Zofran ODT] 4 mg PO Q6H PRN #20 tab.dis PRN Reason: Nausea\vomiting Thiamine [Vitamin B-1] 100 mg PO BEDTIME #30 tab Referrals: PCP,Not In Area [Primary Care Provider] - Additional Instructions: A medical screening exam was done and you are intoxicated but medically cleared to go to the [facility]. I will give you prescriptions for medications to help you come off of the alcohol. - My Orders Last 24 Hours: My Active Orders 12/13/17 08:38 Cardiac Monitoring [RC] . DIRECTED DRUG SCREEN, URINE [URCHEM] Stat Sodium Chloride 0.9% [Saline Flush] 10 ml FLUSH ASDIRECTED PRN Peripheral IV Insertion Adult [OM.PC] Stat 12/13/17 08:39 Peripheral IV Care [RC] . DIRECTED 12/13/17 08:45 Lactated Ringers [Ringers, Lactated] 1,000 ml IV .BOLUS - Assessment/Plan Last 24 Hours: My Active Orders 12/13/17 08:38 Cardiac Monitoring [RC] . DIRECTED DRUG SCREEN, URINE [URCHEM] Stat Sodium Chloride 0.9% [Saline Flush] 10 ml FLUSH ASDIRECTED PRN Peripheral IV Insertion Adult [OM.PC] Stat 12/13/17 08:39 Peripheral IV Care [RC] . DIRECTED 12/13/17 08:45 Lactated Ringers [Ringers, Lactated] 1,000 ml IV .BOLUS
[2017-12-13] MEDS ORDERED: Thiamine 100 MG in Sodium Chloride 0.9% 100 ML IV ONE (10:20)
== END 2017-12-13 11:39 | disposition home or self-care (01) ==
LOC: JD.ED 07:51
DX: F10.120 Alcohol abuse with intoxication, uncomplicated (principal); Y90.0 Blood alcohol level of less than 20 mg/100 ml; F17.210 Nicotine dependence, cigarettes, uncomplicated; F32.9 Major depressive disorder, single episode, unspecified; Z79.899 Other long term (current) drug therapy
CPT/HCPCS: 36415; 80053; 85025; 96361; 96365; 99284; G0480; J3411; J7030; J7050; J7120; 99283